=== PATIENT | male | born 1985 | race Caucasian/White ===

== ENCOUNTER 2020-11-08 09:59 | Emergency (ER) | payer OTHER, SELFPAY ==
[2020-11-08 10:10] VITALS: BP 166/96; PULSE 94; RESP 19; TEMP 37.8; O2SAT 98; BMI 38.1
--- NOTE | 2020-11-08 11:14 | PC.NURSE ---
States Hx of anxiety. reports difficulty sleeping and decreased PO intake.
[2020-11-08 11:42] VITALS: TEMP 36.8
--- NOTE | 2020-11-08 12:05 | ED_ITS ---
HPI - Anxiety General Chief Complaint: Anxiety Stated Complaint: UNCONTROLLABLE ANXIETY, INSOMNIA, DEHYDRATION Time Seen by Provider: 11/08/20 11:43 Source: patient Mode of arrival: Family Vehicle History of Present Illness HPI narrative: Patient is a 35-year-old male with history of alcohol and cocaine abuse but sober for 3 years presenting with insomnia anxiety. He states he was put on antibiotics a week ago Keflex for a right knee infection he has been taking antibiotics since the but he did skip a day. Last night he said was unable to sleep he was up all night. He had excessive thirst and drink a bunch of water. Today he had some shaking uncontrollably he is unsure why he did not have any sweats afterwards. He did have low-grade fever initially in the ER but denies any other fever. His knee overall has improved significantly. MD complaint: anxiety Related Data Home Medications Medication Instructions Recorded Confirmed Ibuprofen See Rx Instructions .ROUTE .COMPLEX 08/08/18 10/31/20 Previous Rx's Medication Instructions Recorded cephalexin 500 mg capsule 500 mg PO Q8H 10 Days #30 cap 10/31/20 Allergies Allergy/AdvReac Type Severity Reaction Status Date / Time doxycycline Allergy Intermediate HIVES Verified 10/31/20 08:39 alprazolam [ALPRAZOLAM] AdvReac Severe ADDICTION Verified 10/31/20 08:39 buspirone AdvReac Mild DIZZINESS Verified 10/31/20 08:39 Review of Systems Review of Systems ROS Unobtainable: All systems reviewed & are unremarkable except as noted in HPI and below Constitutional Constitutional: Denies chills, Reports fatigue, Denies fever(s), Denies lethargy and Denies weakness ENT Ears, Nose, Mouth, and Throat: Denies dizziness and Denies sinus pressure Comments: Denies loss of taste or smell Cardiovascular Cardiovascular: Denies chest pain, Denies irregular heart rhythm, Denies lightheadedness, Denies palpitations, Denies dyspnea, Denies dyspnea on exertion and Denies orthopnea Respiratory Respiratory: Denies cough, Denies dyspnea, Denies dyspnea on exertion and Denies wheezing Gastrointestinal Gastrointestinal: Denies abdominal pain, Denies change in bowel habits, Denies diarrhea, Denies nausea and Denies vomiting Musculoskeletal Musculoskeletal: Reports as per HPI Integumentary/Breasts Skin/Breast: Denies pruritus, Denies erythema, Denies rash and Denies wounds Neurologic Neurologic: Denies dizziness and Denies weakness Endocrine Endocrine: Reports fatigue and Denies palpitations Allergic/Immunologic Allergic/Immunologic: Denies wheezing Patient History Medical History Allergic rhinitis Anxiety Depression Surgical History No history of previous surgery Social History Smoking Status: Former smoker second hand exposure: No alcohol intake: former substance use type: does not use Smoking Status: Former smoker Substance Use Type: former substance user Exam Initial Vital Signs Initial Vital Signs: Vital Signs Temperature 100.1 F H 11/08/20 10:10 Pulse Rate 94 H 11/08/20 10:10 Respiratory Rate 19 11/08/20 10:10 Blood Pressure 166/96 H 11/08/20 10:10 Pulse Oximetry 98 11/08/20 10:10 GENERAL: Well-appearing, well-nourished and in no acute distress. HEENT: Head atraumatic,EOMI, pupils reactive, face symmetric, moist mucous membranes CARDIOVASCULAR: Regular rate and rhythm without murmurs, rubs or gallops. RESPIRATORY: Breath sounds equal bilaterally, no wheezes rales or rhonchi. ABDOMEN: Soft, nontender. Normoactive bowel sounds all 4 quadrants. No guardin g or rebound. EXTREMITIES: Normal range of motion, no clubbing or edema. Neurovascularly intact Right knee able to flex and extend completely NEUROLOGICAL: Alert and oriented x4.Normal gait and speech. Cranial nerves II through XII grossly intact. SKIN: Warm, dry, no laceration, no petechiae, no rashes or lesions. Right knee has no erythema it is covered with tattoos but I see no fluctuation no surrounding erythema Course Orders Ordered: ED Orders 11/08/20 12:35 Complete Blood Count AUTO DIFF Stat Comprehensive Metabolic Panel Stat Vital Signs Vital signs: Vital Signs - 8 hr 11/08/20 10:10 11/08/20 11:42 11/08/20 13:50 Temperature 100.1 F H 98.2 F Pulse Rate 94 H 80 Respiratory Rate 19 16 Blood Pressure 166/96 H 123/85 Pulse Oximetry 98 98 MDM - Anxiety Lab Data Attestation: I reviewed the patient's lab results. Result diagrams: 11/08/20 12:35 11/08/20 12:35 Labs: Lab Results 11/08/20 11/08/20 Range/Units 12:35 12:35 WBC 12.1 H (4.5-11.0) X10^3/uL RBC 4.89 (4.5-5.9) X10^6/uL Hgb 14.8 (13.5-17.5) g/dL Hct 43.2 (41-53) % MCV 88.2 (80-100) fL MCH 30.3 (26-34) PG MCHC 34.3 (30-36) % RDW 12.7 (11.6-14.8) % Plt Count 313 (150-400) X10^3/uL Neut % (Auto) 72.8 (50-75) % Lymph % (Auto) 16.7 L (25-40) % [place] % (Auto) 4.3 (3-14) % Eos % (Auto) 5.8 H (2-4) % Baso % (Auto) 0.4 (0-2) % Neut # (Auto) 8800 H (4221-8183) /uL Lymph # (Auto) 2000 (2211-8158) /uL [place] # (Auto) 500 (0-900) /uL Eos # (Auto) 700 H (0-450) /uL Baso # (Auto) 100 (0-100) /uL Sodium 139 (137-145) mmol/L Potassium 4.3 (3.4-5.1) mmol/L Chloride 103 (98-107) mmol/L Carbon Dioxide 31 (22-32) mmol/L BUN 14 (9-20) mg/dL Creatinine 0.72 (0.66-1.25) mg/dL Estimated GFR > 60.0 (>60) mL/min BUN/Creatinine Ratio 19.4 (6-22) Glucose 107 H (70-100) mg/dL Calcium 9.6 (8.4-10.2) mg/dL Total Bilirubin 0.4 (0.2-1.3) mg/dL AST 27 (17-59) IU/L ALT 27 (<50) IU/L Alkaline Phosphatase 75 (38-126) U/L Total Protein 7.8 (6.3-8.2) g/dL Albumin 4.6 (3.5-5.0) g/dL Globulin 3.2 (1.7-4.1) g/dL Albumin/Globulin Ratio 1.4 (1.0-2.8) Point of Care Testing Glucose POC 131 Urine Dip Bedside Urine Glucose Negative Bedside Urine Bilirubin - Negative Bedside Urine Ketone - Negative Urine Specific [place] 1.015 Bedside Urine Occult Blood - Negative Bedside Urine pH 6.0 Bedside Urine Protein - Negative Bedside Urine Urobilinogen - Negative Bedside Urine Nitrite - Negative Bedside Urine Leukocytes - Negative Esterase MDM Narrative Medical decision making narrative: Patient overall appears well. He feels like he might be having a reaction to cephalexin with the anxiety. At this time I really do not have a strong feeling this is what is happening. He overall has no rash or allergic type reaction. The cephalexin seems to be working on his infection he does have mild leukocytosis but overall the site appears to be healing. He states he is extremely sensitive to medications, however at this time I recommend he finish the antibiotic unless it is completely intolerable bu t we would need to switch it to something else. At this time I recommend taking Benadryl or Unisom to help him get some sleep. Insomnia can compound his symptoms. This seems to be more of an anxiety related issue. He overall does not appear septic. Discharge Plan Departure Patient Disposition: Home Clinical Impression: Anxiety Instructions: Anxiety Disorders Activity Restrictions/Additional Instructions: *You have been diagnosed with anxiety *What to do: Possible anxiety reaction today. Blood work is overall reassuring. Some water is good for you however too much water can be dangerous so please monitor your water intake your electrolytes today are within normal limits *Continue to take medications as directed Please finish your antibiotic *Follow up with your primary care provider in 2-3 days *Return to ER if you should have any new, worsening or concerning symptoms Prescriptions: No Action Ibuprofen See Rx Instructions .ROUTE .COMPLEX RF: 0 cephalexin 500 mg capsule 500 mg PO Q8H 10 Days Qty: 30 RF: 0 Referrals: Miscellaneous,Doctor, [Primary Care Provider] -
[2020-11-08 12:42] LABS: Add Manual Diff / Slide Review NO; Basophils Absolute Auto 100 /uL (0-100); Basophils Percent Auto 0.4 % (0-2); Eosinophils Absolute Auto 700 /uL (0-450); Eosinophils Percent Auto 5.8 % (2-4); Hematocrit 43.2 % (41-53); Hemoglobin 14.8 g/dL (13.5-17.5); Lymphocytes Absolute Auto 2000 /uL (1100-4500); Lymphocytes Percent Auto 16.7 % (25-40); Mean Corpuscular HGB Conc 34.3 % (30-36); Mean Corpuscular Hemoglobin 30.3 PG (26-34); Mean Corpuscular Volume 88.2 fL (80-100); Monocytes Absolute Auto 500 /uL (0-900); Monocytes Percent Auto 4.3 % (3-14); Neutrophils Absolute Auto 8800 /uL (1500-7000); Neutrophils Percent Auto 72.8 % (50-75); Platelet Count 313 X10^3/uL (150-400); Red Blood Cell Count 4.89 X10^6/uL (4.5-5.9); Red Cell Distribution Width 12.7 % (11.6-14.8); White Blood Cell Count 12.1 X10^3/uL (4.5-11.0)
[2020-11-08 12:54] LABS: Alanine Aminotransferase 27 IU/L (<50); Albumin 4.6 g/dL (3.5-5.0); Albumin Globulin Ratio 1.4 (1.0-2.8); Alkaline Phosphatase 75 U/L (38-126); Aspartate Aminotransferase 27 IU/L (17-59); BUN Creatinine Ratio 19.4 (6-22); Bilirubin Total 0.4 mg/dL (0.2-1.3); Blood Urea Nitrogen 14 mg/dL (9-20); Calcium 9.6 mg/dL (8.4-10.2); Carbon Dioxide 31 mmol/L (22-32); Chloride 103 mmol/L (98-107); Estimated Glomerular Filt Rate > 60.0 mL/min (>60); Globulin 3.2 g/dL (1.7-4.1); Glucose 107 mg/dL (70-100); HEMOLYSIS < 15 (0-50); Potassium 4.3 mmol/L (3.4-5.1); Sodium 139 mmol/L (137-145); Total Protein 7.8 g/dL (6.3-8.2)
[2020-11-08 13:50] VITALS: BP 123/85; PULSE 80; RESP 16; O2SAT 98
== END 2020-11-08 13:50 | disposition home or self-care (01) ==
PROVIDERS: Emergency Provider Emergency Medicine
DX: F41.9 Anxiety disorder, unspecified (principal); R50.9 Fever, unspecified; F32.9 Major depressive disorder, single episode, unspecified; G47.00 Insomnia, unspecified
CPT/HCPCS: 80053; 81003; 82962; 85025; 99282; 99283

== ENCOUNTER → 2021-03-02 07:36 | Outpatient (CLI) | payer OTHER, SELFPAY ==
[2021-03-02 08:16] LABS: Cholesterol 148 mg/dL (140-199); HDL Cholesterol 26 mg/dL (40-60); LDL Cholesterol Calculated 99 mg/dL (<100); Triglycerides 117 mg/dL (35-150)
[2021-03-02 08:20] LABS: Hemoglobin A1C% w Est Avg Glu 5.5 % (4.0-6.0)
[2021-03-02 08:48] LABS: TSH w/ Reflex to FT4 1.97 uIU/mL (0.47-4.68)
== END ==
PROVIDERS: PCP Family Medicine; Referring Provider Family Medicine; Visit Provider Family Medicine
DX: Z00.01 Encounter for general adult medical examination with abnormal findings (principal); F41.9 Anxiety disorder, unspecified
CPT/HCPCS: 36415; 80061; 83036; 84443

== ENCOUNTER 2021-07-25 10:30 | Emergency (ER) | payer OTHER, SELFPAY ==
[2021-07-25 10:46] VITALS: BP 133/91; PULSE 70; RESP 16; TEMP 36.7; O2SAT 99; BMI 35.9
[2021-07-25 11:10] LABS: Add Manual Diff / Slide Review NO; Basophils Absolute Auto 0 /uL (0-100); Basophils Percent Auto 0.5 % (0-2); Eosinophils Absolute Auto 100 /uL (0-450); Eosinophils Percent Auto 1.3 % (2-4); Hematocrit 44.7 % (41-53); Hemoglobin 15.6 g/dL (13.5-17.5); Lymphocytes Absolute Auto 1800 /uL (1100-4500); Lymphocytes Percent Auto 27.9 % (25-40); Mean Corpuscular HGB Conc 34.9 % (30-36); Mean Corpuscular Hemoglobin 30.7 PG (26-34); Mean Corpuscular Volume 88.1 fL (80-100); Monocytes Absolute Auto 600 /uL (0-900); Monocytes Percent Auto 8.5 % (3-14); Neutrophils Absolute Auto 4100 /uL (1500-7000); Neutrophils Percent Auto 61.8 % (50-75); Platelet Count 232 X10^3/uL (150-400); Red Blood Cell Count 5.07 X10^6/uL (4.5-5.9); Red Cell Distribution Width 12.5 % (11.6-14.8); White Blood Cell Count 6.6 X10^3/uL (4.5-11.0)
[2021-07-25 11:19] LABS: Alanine Aminotransferase 28 IU/L (<50); Albumin 4.7 g/dL (3.5-5.0); Albumin Globulin Ratio 1.6 (1.0-2.8); Alkaline Phosphatase 66 U/L (38-126); Aspartate Aminotransferase 28 IU/L (17-59); BUN Creatinine Ratio 22.5 (6-22); Bilirubin Total 0.7 mg/dL (0.2-1.3); Blood Urea Nitrogen 18 mg/dL (9-20); Calcium 9.6 mg/dL (8.4-10.2); Carbon Dioxide 24 mmol/L (22-32); Chloride 105 mmol/L (98-107); Creatine Kinase 167 U/L (55-170); Estimated Glomerular Filt Rate > 60.0 mL/min (>60); Globulin 2.9 g/dL (1.7-4.1); Glucose 112 mg/dL (70-100); HEMOLYSIS < 15 (0-50); Lipase 74 U/L (23-300); Magnesium 2.1 mg/dL (1.6-2.3); Sodium 139 mmol/L (137-145); Total Protein 7.6 g/dL (6.3-8.2)
[2021-07-25 11:31] LABS: Troponin I < 0.012 ng/mL (0.01-0.034)
[2021-07-25 11:35] LABS: CKMB % Relative Index 0.4 % (1.5-5.0)
[2021-07-25 12:02] LABS: COVID19 -Nasal RAPID Negative (Negative)
[2021-07-25] MEDS: hydrOXYzine Syrup 10 MG/5 ML SOLUTION PO (13:09)
--- NOTE | 2021-07-25 13:26 | PC.NURSE ---
Pt is well appearing, with quiet, withdrawn affect but readily communicative with this RN. Anxiety appears to be manageable at this time.
[2021-07-25 13:31] VITALS: BP 124/74; PULSE 69; RESP 16; O2SAT 96
--- NOTE | 2021-07-25 13:50 | ED.ANXIETY ---
HPI - Anxiety <LLUVIA Allan - Last Filed: 07/25/21 15:16> General Chief Complaint: Anxiety Stated Complaint: not sleeping /panic attacks/ weak/ chest pain Time Seen by Provider: 07/25/21 12:12 Source: patient Mode of arrival: Ambulatory History of Present Illness HPI narrative: 36-year-old male presents with complaint of anxiety and panic attacks worsening over the last 2 weeks. He has been to the ER for this previously and is currently receiving behavioral therapy 1 time per week and is not currently on any medication for his anxiety. He has history of substance abuse and reports being in recovery for last 3 years. He endorses that he has extra sensitivity to medication since sobriety and has reported negative reactions to lexapro including hallucinations, and buspirone causing dizziness. He reports having trouble sleeping for last two weeks and having episodes of panic and feelings of depression intermittently. He is trying to get an appointment with his PCP next week. No known relieving factors, and triggers are not identifiable. Denies suicidal ideation, homicidal ideation, or audiovisual hallucinations. Related Data Home Medications Medication Instructions Recorded Confirmed Ibuprofen See Rx Instructions .ROUTE .COMPLEX 08/08/18 02/24/21 Previous Rx's Medication Instructions Recorded hydroxyzine HCl 10 mg tablet See Rx Instructions .ROUTE 07/25/21 .COMPLEX PRN #30 tab Allergies Allergy/AdvReac Type Severity Reaction Status Date / Time doxycycline Allergy Intermediate HIVES Verified 03/11/21 10:31 alprazolam [ALPRAZOLAM] AdvReac Severe ADDICTION Verified 03/11/21 10:31 escitalopram AdvReac Severe panic Verified 03/11/21 10:31 attack, lock jaw, tremors buspirone AdvReac Mild DIZZINESS Verified 03/11/21 10:31 Review of Systems <LLUVIA Allan - Last Filed: 07/25/21 15:16> Review of Systems Narrative: GENERAL: Denies chills, fatigue, malaise, fever, sweats. HEENT: Denies sinus pain, ear pain, sore throat, difficulty swallowing, dizziness. RESPIRATORY: Denies dyspnea, cough, or wheezing. CARDIOVASCULAR: Denies chest pain, palpitations, or swelling. GASTROINTESTINAL: Denies nausea, vomiting, abdominal pain, diarrhea. : Denies dysuria, frequency. MUSCULOSKELETAL: denies weakness, joint pain, or bony pain SKIN: Denies rash, skin lesions, or other NEUROLOGIC: Denies weakness, headaches, or incoordination. PSYCHIATRIC: No concerning psychosocial issues including SI, HI, or ADH. Denies caffeine use, denies any substance use including nicotine. 12 point review of systems is negative except for those stated above Patient History <LLUVIA Allan - Last Filed: 07/25/21 15:16> Medical History Allergic rhinitis Anxiety Depression Encounter for general adult medical examination with abnormal findings Surgical History No history of previous surgery Social History Smoking Status: Never smoker second hand exposure: No alcohol intake: former substance use type: does not use Smoking Status: Never smoker alcohol intake frequency: 0-2 drinks per day Substance Use Type: does not use Exam <LLUVIA Allan - Last Filed: 07/25/21 15:16> Narrative Exam Narrative: GENERAL: 36 year old male patient appears stated age. Well-developed patient, in mild psychosocial distress. HEAD: Atraumatic. Normocephalic. EYES: Pupils equal round and reactive. Extraocular motions intact. No scleral icterus. No injection or drainage. ENT: Nose without drainage. Throat without erythema, airway patent. Moist mucous membranes. NECK: Trachea midline. Non tender CARDIOVASCULAR: Regular rate and rhythm without murmurs, gallops, or rubs. RESPIRATORY: Clear to auscultation. Breath sounds equal bilaterally. No wheezes, rales, or rhonchi. GASTROINTESTINAL: Abdomen soft, non-tender, nondistended. Hypoactive bowel tones EXTREMITIES: No edema or joint tenderness. BACK: Nontender without deformity. No flank tenderness. NEURO: AOx3, mood and mentation are appropriate during my exam. SKIN: No rash or erythema of visible areas Initial Vital Signs Initial Vital Signs: Vital Signs Temperature 98.1 F 07/25/21 10:46 Pulse Rate 70 07/25/21 10:46 Respiratory Rate 16 07/25/21 10:46 Blood Pressure 133/91 H 07/25/21 10:46 Pulse Oximetry 99 07/25/21 10:46 <Jaimie Wyman DO - Last Filed: 07/26/21 08:50> Initial Vital Signs Initial Vital Signs: Vital Signs Temperature 98.1 F 07/25/21 10:46 Pulse Rate 70 07/25/21 10:46 Respiratory Rate 16 07/25/21 10:46 Blood Pressure 133/91 H 07/25/21 10:46 Pulse Oximetry 99 07/25/21 10:46 Course <LLUVIA Allan - Last Filed: 07/25/21 15:16> Orders Ordered: Discontinued Medications Hydroxyzine HCl (Hydroxyzine Syrup 10 Mg/5 Ml Solution) 10 mg PO NOW ONE Stop: 07/25/21 12:43 Last Admin: 07/25/21 13:09 Dose: 10 mg Documented by: CTRRIGOBERTO Vital Signs Vital signs: Vital Signs - 8 hr 07/25/21 10:46 07/25/21 13:31 Temperature 98.1 F Pulse Rate 70 69 Respiratory Rate 16 16 Blood Pressure 133/91 H 124/74 Pulse Oximetry 99 96 <Jaimie Wyman DO - Last Filed: 07/26/21 08:50> Orders Ordered: Discontinued Medications Hydroxyzine HCl (Hydroxyzine Syrup 10 Mg/5 Ml Solution) 10 mg PO NOW ONE Stop: 07/25/21 12:43 Last Admin: 07/25/21 13:09 Dose: 10 mg Documented by: CTRRIGOBERTO Vital Signs Vital signs: Vital Signs - 8 hr 07/25/21 10:46 07/25/21 13:31 Temperature 98.1 F Pulse Rate 70 69 Respiratory Rate 16 16 Blood Pressure 133/91 H 124/74 Pulse Oximetry 99 96 MDM - Anxiety <LLUVIA Allan - Last Filed: 07/25/21 15:16> Differential Diagnosis Differential diagnosis: Likely panic disorder and acute anxiety Lab Data Result diagrams: 07/25/21 10:56 07/25/21 10:56 Labs: Lab Results 07/25/21 07/25/21 07/25/21 Range/Units 10:56 10:56 10:56 WBC 6.6 (4.5-11.0) X10^3/uL RBC 5.07 (4.5-5.9) X10^6/uL Hgb 15.6 (13.5-17.5) g/dL Hct 44.7 (41-53) % MCV 88.1 (80-100) fL MCH 30.7 (26-34) PG MCHC 34.9 (30-36) % RDW 12.5 (11.6-14.8) % Plt Count 232 (150-400) X10^3/uL Neut % (Auto) 61.8 (50-75) % Lymph % (Auto) 27.9 (25-40) % [place] % (Auto) 8.5 (3-14) % Eos % (Auto) 1.3 L (2-4) % Baso % (Auto) 0.5 (0-2) % Neut # (Auto) 4100 (1733-9259) /uL Lymph # (Auto) 1800 (9902-7200) /uL [place] # (Auto) 600 (0-900) /uL Eos # (Auto) 100 (0-450) /uL Baso # (Auto) 0 (0-100) /uL Sodium 139 (137-145) mmol/L Potassium 4.0 (3.4-5.1) mmol/L Chloride 105 (98-107) mmol/L Carbon Dioxide 24 (22-32) mmol/L BUN 18 (9-20) mg/dL Creatinine 0.80 (0.66-1.25) mg/dL Estimated GFR > 60.0 (>60) mL/min BUN/Creatinine Ratio 22.5 H (6-22) Glucose 112 H (70-100) mg/dL Calcium 9.6 (8.4-10.2) mg/dL Magnesium 2.1 (1.6-2.3) mg/dL Total Bilirubin 0.7 (0.2-1.3) mg/dL AST 28 (17-59) IU/L ALT 28 (<50) IU/L Alkaline Phosphatase 66 (38-126) U/L Total Creatine Kinase 167 (55-170) U/L CK-MB (CK-2) 0.70 (<2.37) ng/mL CK-MB (CK-2) Rel Index 0.4 L (1.5-5.0) % Troponin I < 0.012 (0.01-0.034) ng/mL Total Protein 7.6 (6.3-8.2) g/dL Albumin 4.7 (3.5-5.0) g/dL Globulin 2.9 (1.7-4.1) g/dL Albumin/Globulin Ratio 1.6 (1.0-2.8) Lipase 74 (23-300) U/L TSH 1.50 (0.47-4.68) uIU/mL SARS-CoV-2 (PCR) (Negative) 07/25/21 Range/Units 11:39 WBC (4.5-11.0) X10^3/uL RBC (4.5-5.9) X10^6/uL Hgb (13.5-17.5) g/dL Hct (41-53) % MCV (80-100) fL MCH (26-34) PG MCHC (30-36) % RDW (11.6-14.8) % Plt Count (150-400) X10^3/uL Neut % (Auto) (50-75) % Lymph % (Auto) (25-40) % [place] % (Auto) (3-14) % Eos % (Auto) (2-4) % Baso % (Auto) (0-2) % Neut # (Auto) (3106-7207) /uL Lymph # (Auto) (7516-1716) /uL [place] # (Auto) (0-900) /uL Eos # (Auto) (0-450) /uL Baso # (Auto) (0-100) /uL Sodium (137-145) mmol/L Potassium (3.4-5.1) mmol/L Chloride (98-107) mmol/L Carbon Dioxide (22-32) mmol/L BUN (9-20) mg/dL Creatinine (0.66-1.25) mg/dL Estimated GFR (>60) mL/min BUN/Creatinine Ratio (6-22) Glucose (70-100) mg/dL Calcium (8.4-10.2) mg/dL Magnesium (1.6-2.3) mg/dL Total Bilirubin (0.2-1.3) mg/dL AST (17-59) IU/L ALT (<50) IU/L Alkaline Phosphatase (38-126) U/L Total Creatine Kinase (55-170) U/L CK-MB (CK-2) (<2.37) ng/mL CK-MB (CK-2) Rel Index (1.5-5.0) % Troponin I (0.01-0.034) ng/mL Total Protein (6.3-8.2) g/dL Albumin (3.5-5.0) g/dL Globulin (1.7-4.1) g/dL Albumin/Globulin Ratio (1.0-2.8) Lipase (23-300) U/L TSH (0.47-4.68) uIU/mL SARS-CoV-2 (PCR) Negative (Negative) ECG Data Attestation: I personally reviewed and interpreted this ECG as follows: Prior ECG tracings: not available for review Interpretation: Normal sinus rhythm 71 bpm, no ST changes, no QT prolongation. Reviewed by Dr. Wyman without acute findings. [facility] Narrative Medical decision making narrative: 31-year-old male with history of substance abuse presents with repeated episodes anxiety insomnia over the last 2 weeks. He reports being a single father under some stress. He denies any suicidal ideation or homicidal ideation or ADH. Initial ddx to include but not limited to panic disorder, thyrotoxicosis, arrhythmia, or psychosis. Vitals normal, exam unremarkable. ED workup to include CBC, CMP, TSH, EKG unremarkable for acute actual abnormality. No evidence of acute cardiopulmonary or neurological abnormalities. Patient received hydroxyzine in the ED with improvement in anxiety without any side effects. Patient is appropriate and amenable to discharge home. Vital signs are stable on repeat examination is unremarkable. Patient has been informed of results. Patient has been given strict return to ER precautions for any new or worsening symptoms. Patient understands to follow up closely with outpatient providers as instructed. Patient understands plan and agrees to discharge home. All questions and concerns answered at this time. <Jaimie Wyman, DO - Last Filed: 07/26/21 08:50> Lab Data Labs: Lab Results 07/25/21 07/25/21 07/25/21 Range/Units 10:56 10:56 10:56 WBC 6.6 (4.5-11.0) X10^3/uL RBC 5.07 (4.5-5.9) X10^6/uL Hgb 15.6 (13.5-17.5) g/dL Hct 44.7 (41-53) % MCV 88.1 (80-100) fL MCH 30.7 (26-34) PG MCHC 34.9 (30-36) % RDW 12.5 (11.6-14.8) % Plt Count 232 (150-400) X10^3/uL Neut % (Auto) 61.8 (50-75) % Lymph % (Auto) 27.9 (25-40) % [place] % (Auto) 8.5 (3-14) % Eos % (Auto) 1.3 L (2-4) % Baso % (Auto) 0.5 (0-2) % Neut # (Auto) 4100 (3262-3151) /uL Lymph # (Auto) 1800 (8548-0997) /uL [place] # (Auto) 600 (0-900) /uL Eos # (Auto) 100 (0-450) /uL Baso # (Auto) 0 (0-100) /uL Sodium 139 (137-145) mmol/L Potassium 4.0 (3.4-5.1) mmol/L Chloride 105 (98-107) mmol/L Carbon Dioxide 24 (22-32) mmol/L BUN 18 (9-20) mg/dL Creatinine 0.80 (0.66-1.25) mg/dL Estimated GFR > 60.0 (>60) mL/min BUN/Creatinine Ratio 22.5 H (6-22) Glucose 112 H (70-100) mg/dL Calcium 9.6 (8.4-10.2) mg/dL Magnesium 2.1 (1.6-2.3) mg/dL Total Bilirubin 0.7 (0.2-1.3) mg/dL AST 28 (17-59) IU/L ALT 28 (<50) IU/L Alkaline Phosphatase 66 (38-126) U/L Total Creatine Kinase 167 (55-170) U/L CK-MB (CK-2) 0.70 (<2.37) ng/mL CK-MB (CK-2) Rel Index 0.4 L (1.5-5.0) % Troponin I < 0.012 (0.01-0.034) ng/mL Total Protein 7.6 (6.3-8.2) g/dL Albumin 4.7 (3.5-5.0) g/dL Globulin 2.9 (1.7-4.1) g/dL Albumin/Globulin Ratio 1.6 (1.0-2.8) Lipase 74 (23-300) U/L TSH 1.50 (0.47-4.68) uIU/mL SARS-CoV-2 (PCR) (Negative) 07/25/21 Range/Units 11:39 WBC (4.5-11.0) X10^3/uL RBC (4.5-5.9) X10^6/uL Hgb (13.5-17.5) g/dL Hct (41-53) % MCV (80-100) fL MCH (26-34) PG MCHC (30-36) % RDW (11.6-14.8) % Plt Count (150-400) X10^3/uL Neut % (Auto) (50-75) % Lymph % (Auto) (25-40) % [place] % (Auto) (3-14) % Eos % (Auto) (2-4) % Baso % (Auto) (0-2) % Neut # (Auto) (7259-5577) /uL Lymph # (Auto) (1518-8788) /uL [place] # (Auto) (0-900) /uL Eos # (Auto) (0-450) /uL Baso # (Auto) (0-100) /uL Sodium (137-145) mmol/L Potassium (3.4-5.1) mmol/L Chloride (98-107) mmol/L Carbon Dioxide (22-32) mmol/L BUN (9-20) mg/dL Creatinine (0.66-1.25) mg/dL Estimated GFR (>60) mL/min BUN/Creatinine Ratio (6-22) Glucose (70-100) mg/dL Calcium (8.4-10.2) mg/dL Magnesium (1.6-2.3) mg/dL Total Bilirubin (0.2-1.3) mg/dL AST (17-59) IU/L ALT (<50) IU/L Alkaline Phosphatase (38-126) U/L Total Creatine Kinase (55-170) U/L CK-MB (CK-2) (<2.37) ng/mL CK-MB (CK-2) Rel Index (1.5-5.0) % Troponin I (0.01-0.034) ng/mL Total Protein (6.3-8.2) g/dL Albumin (3.5-5.0) g/dL Globulin (1.7-4.1) g/dL Albumin/Globulin Ratio (1.0-2.8) Lipase (23-300) U/L TSH (0.47-4.68) uIU/mL SARS-CoV-2 (PCR) Negative (Negative) ECG Data Interpretation: Normal sinus rhythm 71 bpm, no ST changes, no QT prolongation. Reviewed by Dr. Wyman without acute findings. WAYNE: Normal sinus rhythm rate 71 appearing 166 year rest [address] changes no T-wave inversions s waves are noted and 2 3 and AVF no Q-waves- [facility] Narrative Medical decision making narrative: 36-year-old male with history of substance abuse presents with repeated episodes anxiety insomnia over the last 2 weeks. He reports being a single father under some stress. He denies any suicidal ideation or homicidal ideation or ADH. Initial ddx to include but not limited to panic disorder, thyrotoxicosis, arrhythmia, or psychosis. Vitals normal, exam unremarkable. ED workup to include CBC, CMP, TSH, EKG unremarkable for acute actual abnormality. No evidence of acute cardiopulmonary or neurological abnormalities. Patient received hydroxyzine in the ED with improvement in anxiety without any side effects. Patient is appropriate and amenable to discharge home. Vital signs are stable on repeat examination is unremarkable. Patient has been informed of results. Patient has been given strict return to ER precautions for any new or worsening symptoms. Patient understands to follow up closely with outpatient providers as instructed. Patient understands plan and agrees to discharge home. All questions and concerns answered at this time. Discharge Plan Departure Patient Disposition: Home Clinical Impression: Anxiety, Sleep disturbance Instructions: Anxiety and Panic Attacks (Alternative Therapy), DI for Anxiety -- Adult, Yoga May Help Reduce Anxiety and Stress Activity Restrictions/Additional Instructions: It was nice to meet you today. You have been diagnosed with anxiety, insomnia, and panic attacks. *What to do: *Please continue to take your regular medications as directed. [ x] New medication prescriptions sent to your pharmacy: [facility] [ ] New medication written as a paper prescription [ ] No new medications given Take hydroxyzine up to 4 times a day for anxiety and panic attacks. Consider increasing your talk therapy session frequency in times where you feel more anxiety. The book I recommended is Rewiring your Anxious Brain. It will take time and effort to retrain your brain. *Please follow up with your primary care provider in 2-3 days, call for an appointment. Let them know you were seen in the Emergency Department and that we ask that you be seen in follow up. We will electronically transmit a record of today's note if your PCP is in our system *If you do not have a primary care provider please contact the [facility] Resource line at [phone]. They will ask some questions about your medical history and help get you set up with a doctor in the community. *Return to Emergency Department if you should have any new, worsening or concerning symptoms, such as [fever greater than 101 F, shaking chills, worsening pain, persistent vomiting or other bothersome symptoms] Prescriptions: Changed hydroxyzine HCl 10 mg tablet See Rx Instructions .ROUTE .COMPLEX PRN (Reason: anxiety) Qty: 30 RF: 0 No Action Ibuprofen See Rx Instructions .ROUTE .COMPLEX RF: 0 Referrals: Amilcar Timmons MD [Primary Care Provider] - <Jaimie Wyman, - Last Filed: 07/26/21 08:50> [facility] Att[facility]: I was immediately available in the department for consultation. Documentation has been reviewed. I agree with assessment and plan.
== END 2021-07-25 13:38 | disposition home or self-care (01) ==
PROVIDERS: Emergency Medicine; Emergency Provider Nurse Practitioner Critical Care Medicine; PCP Family Medicine
DX: F41.9 Anxiety disorder, unspecified (principal); G47.9 Sleep disorder, unspecified; G47.00 Insomnia, unspecified; R07.9 Chest pain, unspecified; Z20.822 Contact with and (suspected) exposure to COVID-19
CPT/HCPCS: 36415; 80053; 82550; 82553; 83690; 83735; 84443; 84484; 85025; 87635; 93005; 99283; 99284; C9803

== ENCOUNTER 2021-12-30 08:44 | Emergency (ER) | payer OTHER, SELFPAY ==
[2021-12-30] VITALS (8 sets, daily range): BP systolic 126–168; BP diastolic 79–103; PULSE 58–90; RESP 13–18; TEMP 36.4–37.2; O2SAT 96–100; BMI 34.4
--- NOTE | 2021-12-30 09:11 | DI.RAD.S_ITS ---
PROCEDURE: XR CHEST 1V INDICATIONS: chest pain TECHNIQUE: One view of the chest was acquired. COMPARISON: None. FINDINGS: Surgical changes and devices: None. Lungs and pleura: Lungs are clear. No pleural effusions or pneumothorax. Mediastinum: Mediastinal contours appear normal. Heart size is normal. Bones and chest wall: No suspicious bony lesions. Overlying soft tissues appear unremarkable. IMPRESSION: No acute cardiopulmonary pathology. Dictated by: Torito Villar M.D. on 12/30/2021 at 9:29 Approved by: Torito Villar M.D. on 12/30/2021 at 9:29
--- NOTE | 2021-12-30 09:11 | ED_ITS ---
HPI - Chest Pain General Chief Complaint: Chest Pain Stated Complaint: Chest pain, irregular heartbeat, numbness lt arm Time Seen by Provider: 12/30/21 08:49 History of Present Illness HPI narrative: 36-year-old male former smoker with history of anxiety and former alcohol and cocaine abuse (clean for 4 years) presents with a chief complaint of episodes of left anterior chest pressure that has been largely present since Tuesday. The discomfort has some provocation with motion and deep breaths but is certainly not exertional. The patient went for a long run last night and this did not affect his discomfort whatsoever. He denies any significant history of the same. He recently was sick with upper respiratory symptoms that were consistent with COVID but did not get tested. He is not vaccinated. He denies any history of blood clot, recent travel, hemoptysis or lower extremity pain, swelling or redness. Additionally he complains of palpitations and a racing heart. He ruben es any change in diet or medications. Related Data Home Medications Medication Instructions Recorded Confirmed Ibuprofen See Rx Instructions .ROUTE .COMPLEX 08/08/18 02/24/21 Previous Rx's Medication Instructions Recorded hydroxyzine HCl 10 mg tablet See Rx Instructions .ROUTE 08/18/21 .COMPLEX PRN #30 tab trazodone 50 mg tablet 25 mg PO DAILY #30 tab 08/18/21 Allergies Allergy/AdvReac Type Severity Reaction Status Date / Time doxycycline Allergy Intermediate HIVES Verified 03/11/21 10:31 alprazolam [ALPRAZOLAM] AdvReac Severe ADDICTION Verified 03/11/21 10:31 escitalopram AdvReac Severe panic Verified 03/11/21 10:31 attack, lock jaw, tremors buspirone AdvReac Mild DIZZINESS Verified 03/11/21 10:31 Review of Systems Review of Systems Narrative: GENERAL: Denies chills, fatigue, malaise, fever, sweats. HEENT: Denies sinus pain, ear pain, sore throat, difficulty swallowing, dizziness. RESPIRATORY: Denies dyspnea, cough, wheezing, hemoptysis, sputum. CARDIOVASCULAR: See HPI GASTROINTESTINAL: Denies nausea, vomiting, abdominal pain, diarrhea, constipation, melena. : Denies dysuria, frequency, incontinence, hematuria, urinary retention. MUSCULOSKELETAL: denies weakness, joint pain, or bony pain SKIN: Denies rash, skin lesions, or other NEUROLOGIC: Denies weakness, headache, numbness, change in speech, confusion, seizures, incoordination. PSYCHIATRIC: No concerning psychosocial issues. 12 point review of systems is negative except for those stated above Patient History Medical History Allergic rhinitis Anxiety Depression Encounter for general adult medical examination with abnormal findings Surgical History No history of previous surgery Social History Smoking Status: Never smoker second hand exposure: No alcohol intake: former substance use type: does not use Smoking Status: Never smoker alcohol intake frequency: 0-2 drinks per day Substance Use Type: does not use Exam Narrative Exam Narrative: GENERAL: [36 year old patient appears stated age. Well-developed patient, in mild distress. Anxious and tearful HEAD: Atraumatic. Normocephalic. EYES: Pupils equal round and reactive. Extraocular motions intact. No scleral icterus. No injection or drainage. ENT: Nose without bleeding, purulent drainage. Throat without erythema, tonsillar hypertrophy or exudate. Airway patent. NECK: Trachea midline. Non tender CARDIOVASCULAR: Regular rate and rhythm without murmurs, gallops, or rubs. RESPIRATORY: Clear to auscultation. Breath sounds equal bilaterally. No wheezes, rales, or rhonchi. GASTROINTESTINAL: Abdomen soft, non-tender, nondistended. EXTREMITIES: No edema or joint tenderness. BACK: Nontender without deformity or crepitance. No flank tenderness. NEURO: AOx3. SKIN: No rash or erythema of visible areas Initial Vital Signs Initial Vital Signs: Vital Signs Temperature 99 F 12/30/21 08:57 Pulse Rate 78 12/30/21 08:57 Respiratory Rate 14 12/30/21 08:57 Blood Pressure 168/103 H 12/30/21 08:57 Pulse Oximetry 100 12/30/21 08:57 Scores PERC Score Age greater than or equal to 50 years: No Heart rate greater than or equal to 100 bpm: No Room Air O2 Sat less than 95%: No Unilateral leg swelling: No Recent trauma or surgery: No Hemoptysis: No Prior PE or DVT: No Hormone Use: No Total PERC Score: 0 Wells' Criteria for PE Clinical signs and symptoms of DVT: No PE is #1 Dx or equally likely: No Heart rate > 100: No Immobilization at least 3 days or surg in previous 4 weeks: No History of PE or DVT: No Hemoptysis: No Malignancy w/Treatment within 6 months or palliative: No Wells' PE Score total: 0 Course Orders Ordered: ED Orders 12/30/21 09:09 COVID19 -Nasal swab/Pre-Proc Stat CRP [C-Reactive Protein Quant] Stat Complete Blood Count AUTO DIFF Stat Comprehensive Metabolic Panel Stat ESR [Erythrocyte Sedimentation Rate] Stat Lipase Stat Troponin & CK Cardiac Panel Stat 12/30/21 09:11 XR chest 1V Stat Sodium Chloride (Normal Saline 0.9%) 1,000 mls @ 150 mls/hr IV CONT STAN Last Infusion: 12/30/21 10:21 Dose: 0 mls/hr Documented by: Admin: 12/30/21 10:17 Dose: 150 mls/hr Documented by: CHINTAN Discontinued Medications Aspirin (Aspirin 81 Mg Chew Tab) 324 mg PO NOW ONE Stop: 12/30/21 09:11 Last Admin: 12/30/21 09:45 Dose: 324 mg Documented by: CHINTAN Vital Signs Vital signs: Vital Signs - 8 hr 12/30/21 08:57 12/30/21 08:59 12/30/21 09:00 Temperature 99 F Pulse Rate 78 73 90 Respiratory Rate 14 16 15 Blood Pressure 168/103 H Pulse Oximetry 100 100 100 12/30/21 09:20 12/30/21 09:27 12/30/21 09:30 Temperature 99 F 98.3 F Pulse Rate 90 68 68 Respiratory Rate 18 18 15 Blood Pressure 168/103 H 168/103 H Pulse Oximetry 100 99 97 12/30/21 10:00 12/30/21 10:20 Temperature 97.6 F Pulse Rate 59 L 58 L Respiratory Rate 13 15 Blood Pressure 126/79 Pulse Oximetry 96 98 MDM - Chest Pain Lab Data Result diagrams: 12/30/21 09:09 12/30/21 09:09 Labs: Lab Results 12/30/21 12/30/21 12/30/21 Range/Units 09:09 09:09 09:09 WBC 4.9 (4.5-11.0) X10^3/uL RBC 5.14 (4.5-5.9) X10^6/uL Hgb 15.6 (13.5-17.5) g/dL Hct 44.1 (41-53) % MCV 85.7 (80-100) fL MCH 30.4 (26-34) PG MCHC 35.4 (30-36) % RDW 12.6 (11.6-14.8) % Plt Count 236 (150-400) X10^3/uL Neut % (Auto) 48.9 L (50-75) % Lymph % (Auto) 41.5 H (25-40) % Faulk % (Auto) 7.4 (3-14) % Eos % (Auto) 1.6 L (2-4) % Baso % (Auto) 0.6 (0-2) % Neut # (Auto) 2400 (8316-1043) /uL Lymph # (Auto) 2000 (1056-8182) /uL Faulk # (Auto) 400 (0-900) /uL Eos # (Auto) 100 (0-450) /uL Baso # (Auto) 0 (0-100) /uL ESR 6 (0-15) MM/HR Sodium (137-145) mmol/L Potassium (3.4-5.1) mmol/L Chloride (98-107) mmol/L Carbon Dioxide (22-32) mmol/L BUN (9-20) mg/dL Creatinine (0.66-1.25) mg/dL Estimated GFR (>60) mL/min BUN/Creatinine Ratio (6-22) Glucose (70-100) mg/dL Calcium (8.4-10.2) mg/dL Total Bilirubin (0.2-1.3) mg/dL AST (17-59) IU/L ALT (<50) IU/L Alkaline Phosphatase (38-126) U/L Total Creatine Kinase (55-170) U/L CK-MB (CK-2) CK-MB (CK-2) Rel Index Troponin I (0.01-0.034) ng/mL C-Reactive Protein < 0.5 (<1.0) mg/dL Total Protein (6.3-8.2) g/dL Albumin (3.5-5.0) g/dL Globulin (1.7-4.1) g/dL Albumin/Globulin Ratio (1.0-2.8) Lipase (23-300) U/L 12/30/21 Range/Units 09:09 WBC (4.5-11.0) X10^3/uL RBC (4.5-5.9) X10^6/uL Hgb (13.5-17.5) g/dL Hct (41-53) % MCV (80-100) fL MCH (26-34) PG MCHC (30-36) % RDW (11.6-14.8) % Plt Count (150-400) X10^3/uL Neut % (Auto) (50-75) % Lymph % (Auto) (25-40) % Faulk % (Auto) (3-14) % Eos % (Auto) (2-4) % Baso % (Auto) (0-2) % Neut # (Auto) (2993-5141) /uL Lymph # (Auto) (0040-9088) /uL Faulk # (Auto) (0-900) /uL Eos # (Auto) (0-450) /uL Baso # (Auto) (0-100) /uL ESR (0-15) MM/HR Sodium 141 (137-145) mmol/L Potassium 3.8 (3.4-5.1) mmol/L Chloride 106 (98-107) mmol/L Carbon Dioxide 27 (22-32) mmol/L BUN 14 (9-20) mg/dL Creatinine 0.88 (0.66-1.25) mg/dL Estimated GFR > 60.0 (>60) mL/min BUN/Creatinine Ratio 15.9 (6-22) Glucose 113 H (70-100) mg/dL Calcium 9.9 (8.4-10.2) mg/dL Total Bilirubin 1.0 (0.2-1.3) mg/dL AST 36 (17-59) IU/L ALT 45 (<50) IU/L Alkaline Phosphatase 63 (38-126) U/L Total Creatine Kinase 97 (55-170) U/L CK-MB (CK-2) TNP CK-MB (CK-2) Rel Index TNP Troponin I < 0.012 (0.01-0.034) ng/mL C-Reactive Protein (<1.0) mg/dL Total Protein 8.0 (6.3-8.2) g/dL Albumin 4.7 (3.5-5.0) g/dL Globulin 3.3 (1.7-4.1) g/dL Albumin/Globulin Ratio 1.4 (1.0-2.8) Lipase 75 (23-300) U/L Imaging Data Chest x-ray: Radiologist's Impression: Roberto Chi??36??M??1985 ? Allergy/Adv: doxycycline, alprazolam, escitalopram, buspirone (More??) Close Chest X-Ray (Signed) Torito Villar - 12/30/21 Launch?[address] [address] XRay Report Signed Patient: Roberto Chi MR#: [id number] : 1985 Acct:[id number] Age/Sex: 36 / M Date of Service: 12/30/21 Loc: ED Accession Number: [id number] ?? Procedure: XR chest 1V Ordering Provider: Amari Landeros D.O. PROCEDURE:? XR CHEST 1V ? INDICATIONS:? chest pain ? TECHNIQUE:? One view of the chest was acquired.? ? COMPARISON:? None. ? FINDINGS:? ? Surgical changes and devices:? None.? ? Lungs and pleura:? Lungs are clear.? No pleural effusions or pneumothorax.? ? Mediastinum:? Mediastinal contours appear normal.? Heart size is normal.? ? Bones and chest wall:? No suspicious bony lesions.? Overlying soft tissues appear unremarkable.? ? IMPRESSION:? No acute cardiopulmonary pathology. ? ? Dictated by: Torito Villar M.D. on 12/30/2021 at 9:29 ? ? Approved by: Torito Villar M.D. on 12/30/2021 at 9:29 ? ECG Data Interpretation: EKG is normal sinus rhythm rate [87 ] and free of any signs of ischemia or ectopy. No ST segmental elevation or depression. No T wave inversions MDM Narrative Medical decision making narrative: Multiple causes of chest pain considered including NJ, PE, pneumothorax, pneumonia, aortic dissection, and pleurisy. Patient reports no radiation, no diaphoresis, no provocation with exertion, and no vomiting Patient's symptoms improved over duration of stay with above-stated therapies. Pericarditis considered, thought unlikely given lack of elevated inflammatory markers. Pulmonary embolism considered but thought unlikely given wells and PERC scores which suggest against the need for D-dimer, let alone advanced imaging. Findings and discharge diagnosis discussed with patient/family followed by verbalization of understanding Return precautions discussed with patient/family whom verbalize understanding. Discharge Plan Departure Patient Disposition: Home Clinical Impression: Atypical chest pain, Premature ventricular contraction Instructions: DI for Atypical Chest Pain Activity Restrictions/Additional Instructions: *You have been diagnosed with [atypical chest pain and PVCs. Your history, physical exam, labs and EKG are very reassuring. There is no evidence of heart attack, blood clot, pericarditis or other specific diagnosis that we require an immediate intervention *What to do: *Please continue to take your regular medications as directed. [ ] New medication prescriptions sent to your pharmacy: [ ] [ ] New medication written as a paper prescription [ ] No new medications given *Please follow up with your primary care provider in 2-3 days, call for an appointment. Let them know you were seen in the Emergency Department and that we ask that you be seen in follow up. We will electronically transmit a record of today's note if your PCP is in our system *If you do not have a primary care provider please contact the [facility] Resource line at [phone]. They will ask some questions about your medical history and help get you set up with a doctor in the community. *Return to Emergency Department if you should have any new, worsening or concerning symptoms, such as [fever greater than 101 F, shaking chills, worsening pain, persistent vomiting or other bothersome symptoms] Prescriptions: No Action Ibuprofen See Rx Instructions .ROUTE .COMPLEX 0RF Label Comments: 800 mg PO PRN Rx Instructions: 800 mg PO PRN trazodone 50 mg tablet 25 mg PO DAILY Qty: 30 2RF hydroxyzine HCl 10 mg tablet See Rx Instructions .ROUTE .COMPLEX PRN (Reason: anxiety) Qty: 30 1RF Rx Instructions: Take 0.5-2 tabs as needed for anxiety and panic attack. May use up to 25mg as needed. It may make you sleepy, do not drive after taking medication. Referrals: Amilcar Timmons MD [Primary Care Provider] -
[2021-12-30 09:22] LABS: Add Manual Diff / Slide Review NO; Basophils Absolute Auto 0 /uL (0-100); Basophils Percent Auto 0.6 % (0-2); Eosinophils Absolute Auto 100 /uL (0-450); Eosinophils Percent Auto 1.6 % (2-4); Hematocrit 44.1 % (41-53); Hemoglobin 15.6 g/dL (13.5-17.5); Lymphocytes Absolute Auto 2000 /uL (1100-4500); Lymphocytes Percent Auto 41.5 % (25-40); Mean Corpuscular HGB Conc 35.4 % (30-36); Mean Corpuscular Hemoglobin 30.4 PG (26-34); Mean Corpuscular Volume 85.7 fL (80-100); Monocytes Absolute Auto 400 /uL (0-900); Monocytes Percent Auto 7.4 % (3-14); Neutrophils Absolute Auto 2400 /uL (1500-7000); Neutrophils Percent Auto 48.9 % (50-75); Platelet Count 236 X10^3/uL (150-400); Red Blood Cell Count 5.14 X10^6/uL (4.5-5.9); Red Cell Distribution Width 12.6 % (11.6-14.8); White Blood Cell Count 4.9 X10^3/uL (4.5-11.0)
[2021-12-30 09:34] LABS: Alanine Aminotransferase 45 IU/L (<50); Albumin 4.7 g/dL (3.5-5.0); Albumin Globulin Ratio 1.4 (1.0-2.8); Alkaline Phosphatase 63 U/L (38-126); Aspartate Aminotransferase 36 IU/L (17-59); BUN Creatinine Ratio 15.9 (6-22); Blood Urea Nitrogen 14 mg/dL (9-20); Calcium 9.9 mg/dL (8.4-10.2); Carbon Dioxide 27 mmol/L (22-32); Chloride 106 mmol/L (98-107); Creatine Kinase 97 U/L (55-170); Estimated Glomerular Filt Rate > 60.0 mL/min (>60); Globulin 3.3 g/dL (1.7-4.1); Glucose 113 mg/dL (70-100); HEMOLYSIS 18 (0-50); Lipase 75 U/L (23-300); Potassium 3.8 mmol/L (3.4-5.1); Sodium 141 mmol/L (137-145)
[2021-12-30 09:38] LABS: C-Reactive Protein Quant < 0.5 mg/dL (<1.0)
[2021-12-30 09:40] LABS: Erythrocyte Sedimentation Rate 6 MM/HR (0-15)
[2021-12-30 09:44] LABS: Troponin I < 0.012 ng/mL (0.01-0.034)
[2021-12-30] MEDS: ASPIRIN 81 MG CHEW TAB 324 MG PO (09:45)
[2021-12-30] MEDS: SODIUM CHLORIDE 0.9% 1,000 ML 150 ML IV (10:17)
[2021-12-30 10:37] LABS: COVID19 -Nasal RAPID POSITIVE (Negative)
== END 2021-12-30 10:25 | disposition home or self-care (01) ==
PROVIDERS: Emergency Provider Emergency Medicine; PCP Family Medicine
DX: R07.89 Other chest pain (principal); I49.3 Ventricular premature depolarization; Z20.822 Contact with and (suspected) exposure to COVID-19
CPT/HCPCS: 36415; 71045; 80053; 82550; 83690; 84484; 85025; 85651; 86140; 87635; 93005; 93010; 99284; C9803

== ENCOUNTER 2022-01-07 07:02 | Emergency (ER) | payer OTHER, SELFPAY ==
[2022-01-07 07:07] VITALS: BP 132/86; PULSE 79; RESP 18; TEMP 36.6; O2SAT 96; BMI 34.4
--- NOTE | 2022-01-07 07:38 | ED.ANXIETY ---
HPI - Anxiety General Chief Complaint: Anxiety Stated Complaint: shaking, heart racing, reaction to meds, Time Seen by Provider: 01/07/22 07:38 Source: patient Mode of arrival: Ambulatory History of Present Illness HPI narrative: The patient has been seen here previously with atypical chest pain. He was positive for COVID but 3 weeks ago. Initial symptoms of fatigue have passed. He is not suffering headaches or sore throat. He is not having fever chills. He denies dyspnea. Prior cardiac evaluation was negative. His chest x-ray was normal. He was seen by local provider, started on ivermectin and zinc yesterday. He woke this morning with chest pain extending to his left arm, complain of edema in his left arm. He has no neck or back pain. The symptoms have resolved. He has a history of anxiety. He has previously been on Lexapro and hydroxyzine. These medications have not been beneficial. He had a panic attack with these events this morning. He still displays anxiety, but not to the level of a panic attack. He has no underlying cardiopulmonary disease. He does not demonstrate cough while here in the ER. Related Data Home Medications Medication Instructions Recorded Confirmed Ibuprofen See Rx Instructions .ROUTE .COMPLEX 08/08/18 02/24/21 Previous Rx's Medication Instructions Recorded hydroxyzine HCl 10 mg tablet See Rx Instructions .ROUTE 08/18/21 .COMPLEX PRN #30 tab trazodone 50 mg tablet 25 mg PO DAILY #30 tab 08/18/21 ondansetron 4 mg disintegrating 4 mg PO Q8H PRN #30 tab 01/01/22 tablet Allergies Allergy/AdvReac Type Severity Reaction Status Date / Time doxycycline Allergy Intermediate HIVES Verified 03/11/21 10:31 alprazolam [ALPRAZOLAM] AdvReac Severe ADDICTION Verified 03/11/21 10:31 escitalopram AdvReac Severe panic Verified 03/11/21 10:31 attack, lock jaw, tremors buspirone AdvReac Mild DIZZINESS Verified 03/11/21 10:31 Review of Systems Constitutional Constitutional: Reports as per HPI, Denies body ache(s), Denies chills, Denies fatigue, Denies fever(s) and Denies headache(s) Eyes Eyes: Denies change in vision ENT Ears, Nose, Mouth, and Throat: Denies vertigo, Denies dizziness, Denies headache(s) and Denies sore throat Comments: No change in taste or smell. Cardiovascular Cardiovascular: Reports as per HPI, Reports chest pain and Denies dyspnea Respiratory Respiratory: Denies chest congestion, Denies cough and Denies dyspnea Gastrointestinal Gastrointestinal: Denies abdominal pain, Denies constipation and Denies vomiting Musculoskeletal Musculoskeletal: Denies back pain, Denies myalgias and Denies numbness Integumentary/Breasts Skin/Breast: Denies lesions and Denies rash Neurologic Neurologic: Denies abnormal movements, Denies confusion, Denies vertigo, Denies dizziness, Denies headache(s) and Denies numbness Psychiatric Psychiatric: Denies confusion Endocrine Endocrine: Denies fatigue Hematologic/Lymphatic On Anticoagulants: No Patient History Medical History Allergic rhinitis Anxiety Depression Encounter for general adult medical examination with abnormal findings Surgical History No history of previous surgery Social History Smoking Status: Never smoker second hand exposure: No alcohol intake: former substance use type: does not use Smoking Status: Never smoker alcohol intake frequency: 0-2 drinks per day Substance Use Type: does not use Exam Initial Vital Signs Initial Vital Signs: Vital Signs Temperature 98 F 01/07/22 07:07 Pulse Rate 79 01/07/22 07:07 Respiratory Rate 18 01/07/22 07:07 Blood Pressure 132/86 01/07/22 07:07 Pulse Oximetry 96 01/07/22 07:07 Const General: cooperative, healthy appearing, comfortable and anxious [facility] Head: normocephalic and atraumatic Throat: posterior oropharynx normal Eyes General: appearance normal, both eyes and all related structures Neck Neck: No lymphadenopathy and No JVD Chest Chest: normal inspection of the chest Resp Auscultation: clear to auscultation bilaterally Cardio Rate: regular rate Rhythm: regular rhythm Heart Sounds: S1 normal, S2 normal, no click, no murmurs and no rubs GI Inspection: normal to inspection Back/Spine/Pelvis Back: No CVA tenderness Skin General: no rashes or lesions noted Neuro General: patient alert, patient awake and no focal motor deficits Extrem General: normal to inspection, capillary refill normal, no pedal edema and no calf tenderness Psych Speech and Movement: speech and movement normal Mood: anxious mood Attitude: cooperative Judgment: judgment good Other: His speech is a bit forced, he appears anxious. He is pleasant and cooperative with the evaluation. Course Course Course Narrative: His prior evaluation including labs, EKG and chest x-ray reviewed. Troponin and a D-dimer remain normal. He is asymptomatic. There is no suggestion of cardiopulmonary disease. Orders Ordered: ED Orders 01/07/22 07:56 CXR [XR chest 1V] Stat EKG-12 Lead Stat 01/07/22 09:31 D Dimer Stat Troponin & CK Cardiac Panel Stat Vital Signs Vital signs: Vital Signs - 8 hr 01/07/22 07:07 01/07/22 10:20 Temperature 98 F Pulse Rate 79 67 Respiratory Rate 18 16 Blood Pressure 132/86 120/86 Pulse Oximetry 96 97 MDM - Anxiety Lab Data Labs: Lab Results 01/07/22 01/07/22 Range/Units 09:31 09:31 D-Dimer < 200 (<230) ng/mL Total Creatine Kinase 79 (55-170) U/L CK-MB (CK-2) TNP CK-MB (CK-2) Rel Index TNP Troponin I < 0.012 (0.01-0.034) ng/mL Imaging Data Chest x-ray: Radiologist's Impression: No acute cardiopulmonary process. ECG Data Attestation: I personally reviewed and interpreted this ECG as follows: (Sinus bradycardia rate 59 beats per minute. Normal intervals. No ectopy. No acute ST T wave changes.) Discharge Plan Departure Patient Disposition: Home Clinical Impression: Atypical chest pain, Anxiety Instructions: DI for Atypical Chest Pain Activity Restrictions/Additional Instructions: Your heart and lungs are functioning normally. There is no suggestion of COVID-19 on the x-ray. I would recommend stopping the ivermectin. I Would recommend vitamin-D 5000 units daily and zinc supplements. Eat, hydrate exercise regularly to protect her health. Follow-up with your doctor as planned. Discuss a possible stress test if you want further evaluation of your heart. Return here as necessary. Prescriptions: No Action Ibuprofen See Rx Instructions .ROUTE .COMPLEX 0RF Label Comments: 800 mg PO PRN Rx Instructions: 800 mg PO PRN ondansetron 4 mg tablet,disintegrating 4 mg PO Q8H PRN (Reason: nausea and vomiting) Qty: 30 0RF trazodone 50 mg tablet 25 mg PO DAILY Qty: 30 2RF hydroxyzine HCl 10 mg tablet See Rx Instructions .ROUTE .COMPLEX PRN (Reason: anxiety) Qty: 30 1RF Rx Instructions: Take 0.5-2 tabs as needed for anxiety and panic attack. May use up to 25mg as needed. It may make you sleepy, do not drive after taking medication. Referrals: Amilcar Timmons MD [Primary Care Provider] -
--- NOTE | 2022-01-07 07:56 | DI.RAD.S_ITS ---
PROCEDURE: XR CHEST 1V INDICATIONS: Chest pain. Recent Covid. TECHNIQUE: One view of the chest was acquired. COMPARISON: [facility], CR, XR CHEST 1V, 12/30/2021, 9:16. FINDINGS: Surgical changes and devices: None. Lungs and pleura: Lungs are clear. No pleural effusions or pneumothorax. Mediastinum: Mediastinal contours appear normal. Heart size is normal. Bones and chest wall: No suspicious bony lesions. Overlying soft tissues appear unremarkable. IMPRESSION: No acute cardiopulmonary disease. Dictated by: Kira Juárez M.D. on 01/07/2022 at 8:25 Approved by: Kira Juárez M.D. on 01/07/2022 at 8:25
[2022-01-07 09:43] LABS: Creatine Kinase 79 U/L (55-170)
[2022-01-07 09:45] LABS: D Dimer < 200 ng/mL (<230)
[2022-01-07 09:56] LABS: Troponin I < 0.012 ng/mL (0.01-0.034)
[2022-01-07 10:20] VITALS: BP 120/86; PULSE 67; RESP 16; O2SAT 97
== END 2022-01-07 10:28 | disposition home or self-care (01) ==
PROVIDERS: Emergency Provider Emergency Medicine; PCP Family Medicine
DX: R07.89 Other chest pain (principal); F41.9 Anxiety disorder, unspecified
CPT/HCPCS: 36415; 71045; 82550; 84484; 85379; 93005; 93010; 99283; 99284

== ENCOUNTER 2022-01-15 19:40 | Emergency (ER) | payer OTHER, SELFPAY ==
[2022-01-15 20:08] VITALS: BP 144/89; PULSE 88; RESP 20; TEMP 36.9; O2SAT 99; BMI 34.4
--- NOTE | 2022-01-15 20:15 | ED.ANXIETY ---
HPI - Anxiety General Chief Complaint: Anxiety Stated Complaint: covid symptoms, panic attacks, no sleep in 2 days Time Seen by Provider: 01/15/22 19:48 History of Present Illness HPI narrative: 36-year-old male former smoker with history of anxiety and former alcohol and cocaine abuse (clean for 4 years) presents with a chief complaint of episodes?of extremity pain nightly for the past few nights and a lack of sleep. He has been seen multiple times in the aftermath of positive COVID relatively recently with extensive but largely negative workups. He denies any ongoing dizziness or lightheadedness nor any chest pain or shortness of breath. He has no nausea or vomiting. He states that he generally feels unwell and biggest concern is weight describes as twitching and pain that occurs in his extremities when he starts falling asleep. He states that he does not experience this during the day and is not currently experiencing the symptoms. He has had no fever or chills. He denies any GI complaints. He has no urinary symptoms such as dysuria, frequency or urgency. He recently saw his primary care provider who started him on a short course of a benzodiazepine he has only taken a dose or 2 and states that does not help him whatsoever Related Data Home Medications Medication Instructions Recorded Confirmed Ibuprofen See Rx Instructions .ROUTE .COMPLEX 08/08/18 01/08/22 Previous Rx's Medication Instructions Recorded hydroxyzine HCl 10 mg tablet See Rx Instructions .ROUTE 08/18/21 .COMPLEX PRN #30 tab clonazepam 1 mg tablet See Rx Instructions PO BEDTIME PRN 01/08/22 #30 tab omeprazole 40 mg capsule,delayed 40 mg PO DAILY #90 cap 01/08/22 release Allergies Allergy/AdvReac Type Severity Reaction Status Date / Time doxycycline Allergy Intermediate HIVES Verified 03/11/21 10:31 alprazolam [ALPRAZOLAM] AdvReac Severe ADDICTION Verified 03/11/21 10:31 escitalopram AdvReac Severe panic Verified 03/11/21 10:31 attack, lock jaw, tremors buspirone AdvReac Mild DIZZINESS Verified 03/11/21 10:31 Review of Systems Review of Systems Narrative: GENERAL: Denies chills, fatigue, malaise, fever, sweats. HEENT: Denies sinus pain, ear pain, sore throat, difficulty swallowing, dizziness. RESPIRATORY: Denies dyspnea, cough, wheezing, hemoptysis, sputum. CARDIOVASCULAR: Denies chest pain, palpitations, orthopnea, edema, GASTROINTESTINAL: Denies nausea, vomiting, abdominal pain, diarrhea, constipation, melena. : Denies dysuria, frequency, incontinence, hematuria, urinary retention. MUSCULOSKELETAL:see HP SKIN: Denies rash, skin lesions, or other NEUROLOGIC: Denies weakness, headache, numbness, change in speech, confusion, seizures, incoordination. PSYCHIATRIC: No concerning psychosocial issues. 12 point review of systems is negative except for those stated above Patient History Medical History Allergic rhinitis Anxiety Depression Encounter for general adult medical examination with abnormal findings Surgical History No history of previous surgery Social History Smoking Status: Never smoker second hand exposure: No alcohol intake: former substance use type: does not use Smoking Status: Never smoker alcohol intake frequency: 0-2 drinks per day Substance Use Type: does not use Exam Narrative Exam Narrative: GENERAL: [36] year old patient appears stated age. Well-developed patient, in mild distress. Visibly anxious and distressed HEAD: Atraumatic. Normocephalic. EYES: Pupils equal round and reactive. Extraocular motions intact. No scleral icterus. No injection or drainage. ENT: Nose without bleeding, purulent drainage. Throat without erythema, tonsillar hypertrophy or exudate. Airway patent. NECK: Trachea midline. Non tender CARDIOVASCULAR: Regular rate and rhythm without murmurs, gallops, or rubs. RESPIRATORY: Clear to auscultation. Breath sounds equal bilaterally. No wheezes, rales, or rhonchi. GASTROINTESTINAL: Abdomen soft, non-tender, nondistended. EXTREMITIES: No edema or joint tenderness. BACK: Nontender without deformity or crepitance. No flank tenderness. NEURO: AOx3. SKIN: No rash or erythema of visible areas Initial Vital Signs Initial Vital Signs: Vital Signs Temperature 98.4 F 01/15/22 20:08 Pulse Rate 88 01/15/22 20:08 Respiratory Rate 20 01/15/22 20:08 Blood Pressure 144/89 H 01/15/22 20:08 Pulse Oximetry 99 01/15/22 20:08 Course Orders Ordered: ED Orders 01/15/22 22:20 CBC Auto Diff [Complete Blood Count AUTO DIFF] Stat CMP [Comprehensive Metabolic Panel] Stat TSH w/ Reflex to FT4 Stat Vital Signs Vital signs: Vital Signs - 8 hr 01/15/22 20:08 01/15/22 21:09 01/15/22 21:30 Temperature 98.4 F Pulse Rate 88 56 L 59 L Respiratory Rate 20 Blood Pressure 144/89 H Pulse Oximetry 99 96 98 01/15/22 22:00 01/15/22 23:30 01/15/22 23:31 Temperature Pulse Rate 60 80 70 Respiratory Rate Blood Pressure 124/74 Pulse Oximetry 98 99 96 MDM - Anxiety Lab Data Result diagrams: 01/15/22 22:20 01/15/22 22:20 Labs: Lab Results 01/15/22 01/15/22 01/15/22 Range/Units 22:20 22:20 22:20 WBC 8.2 (4.5-11.0) X10^3/uL RBC 4.69 (4.5-5.9) X10^6/uL Hgb 14.1 (13.5-17.5) g/dL Hct 41.4 (41-53) % MCV 88.3 (80-100) fL MCH 30.0 (26-34) PG MCHC 34.0 (30-36) % RDW 12.8 (11.6-14.8) % Plt Count 195 (150-400) X10^3/uL Neut % (Auto) 56.6 (50-75) % Lymph % (Auto) 32.0 (25-40) % Mcdonough % (Auto) 8.5 (3-14) % Eos % (Auto) 2.2 (2-4) % Baso % (Auto) 0.7 (0-2) % Neut # (Auto) 4600 (0357-3152) /uL Lymph # (Auto) 2600 (9346-7843) /uL Mcdonough # (Auto) 700 (0-900) /uL Eos # (Auto) 200 (0-450) /uL Baso # (Auto) 100 (0-100) /uL Sodium 138 (137-145) mmol/L Potassium 4.1 (3.4-5.1) mmol/L Chloride 106 (98-107) mmol/L Carbon Dioxide 30 (22-32) mmol/L BUN 14 (9-20) mg/dL Creatinine 0.89 (0.66-1.25) mg/dL Estimated GFR > 60.0 (>60) mL/min BUN/Creatinine Ratio 15.7 (6-22) Glucose 114 H (70-100) mg/dL Calcium 9.3 (8.4-10.2) mg/dL Total Bilirubin 0.5 (0.2-1.3) mg/dL AST 23 (17-59) IU/L ALT 26 (<50) IU/L Alkaline Phosphatase 54 (38-126) U/L Total Protein 7.1 (6.3-8.2) g/dL Albumin 4.2 (3.5-5.0) g/dL Globulin 2.9 (1.7-4.1) g/dL Albumin/Globulin Ratio 1.4 (1.0-2.8) TSH 1.95 (0.47-4.68) uIU/mL MDM Narrative Medical decision making narrative: Patient with reassuring history and physical. He has been seen on multiple occasions with concerning symptoms but thus far negative workups. His symptoms seem to of largely escalated in the aftermath of COVID, perhaps suggesting an element of long COVID syndrome not classic symptoms. There are no obvious causes or targets for treatment based on his history and physical today. I encouraged close follow-up, return precautions and ongoing discussions with his primary care team Discharge Plan Departure Patient Disposition: Home Clinical Impression: Nocturnal pain Instructions: DI for Leg Pain Activity Restrictions/Additional Instructions: *You have been diagnosed with [nocturnal extremity pain. Thankfully your history, physical exam and labs are very reassuring] *What to do: *Please continue to take your regular medications as directed. [ ] New medication prescriptions sent to your pharmacy: [ ] [ ] New medication written as a paper prescription [ x] No new medications given *Please follow up with your primary care provider in 2-3 days, call for an appointment. Let them know you were seen in the Emergency Department and that we ask that you be seen in follow up. We will electronically transmit a record of today's note if your PCP is in our system *If you do not have a primary care provider please contact the [facility] Resource line at [phone]. They will ask some questions about your medical history and help get you set up with a doctor in the community. *Return to Emergency Department if you should have any new, worsening or concerning symptoms, such as [fever greater than 101 F, shaking chills, worsening pain, persistent vomiting or other bothersome symptoms] Prescriptions: No Action Ibuprofen See Rx Instructions .ROUTE .COMPLEX 0RF Label Comments: 800 mg PO PRN Rx Instructions: 800 mg PO PRN hydroxyzine HCl 10 mg tablet See Rx Instructions .ROUTE .COMPLEX PRN (Reason: anxiety) Qty: 30 1RF Rx Instructions: Take 0.5-2 tabs as needed for anxiety and panic attack. May use up to 25mg as needed. It may make you sleepy, do not drive after taking medication. clonazepam 1 mg tablet See Rx Instructions PO BEDTIME PRN (Reason: insomnia or anxiety) Qty: 30 0RF Rx Instructions: t 1/2 tab to 1 tab 30 minutes before bedtime as needed PO bedtime PRN for panic or insomnia omeprazole 40 mg capsule,delayed release(DR/EC) 40 mg PO DAILY Qty: 90 3RF Referrals: Amilcar Timmons MD [Primary Care Provider] -
[2022-01-15 21:09] VITALS: PULSE 56; O2SAT 96
[2022-01-15 21:30] VITALS: PULSE 59; O2SAT 98
--- NOTE | 2022-01-15 21:45 | PC.NURSE ---
Pt reports increase in panic attacks since having covid a few weeks ago. states when he lays down to sleep at night states skin and muscles start tensing up and keeps him awake. He states he is a single dad of a 4 yr old and hes scared something is going to happen. reports not sleeping for the past 2 nights.
[2022-01-15 22:00] VITALS: PULSE 60; O2SAT 98
[2022-01-15 22:32] LABS: Add Manual Diff / Slide Review NO; Basophils Absolute Auto 100 /uL (0-100); Basophils Percent Auto 0.7 % (0-2); Eosinophils Absolute Auto 200 /uL (0-450); Eosinophils Percent Auto 2.2 % (2-4); Hematocrit 41.4 % (41-53); Hemoglobin 14.1 g/dL (13.5-17.5); Lymphocytes Absolute Auto 2600 /uL (1100-4500); Mean Corpuscular Volume 88.3 fL (80-100); Monocytes Absolute Auto 700 /uL (0-900); Monocytes Percent Auto 8.5 % (3-14); Neutrophils Absolute Auto 4600 /uL (1500-7000); Neutrophils Percent Auto 56.6 % (50-75); Platelet Count 195 X10^3/uL (150-400); Red Blood Cell Count 4.69 X10^6/uL (4.5-5.9); Red Cell Distribution Width 12.8 % (11.6-14.8); White Blood Cell Count 8.2 X10^3/uL (4.5-11.0)
[2022-01-15 22:38] LABS: Alanine Aminotransferase 26 IU/L (<50); Albumin 4.2 g/dL (3.5-5.0); Albumin Globulin Ratio 1.4 (1.0-2.8); Alkaline Phosphatase 54 U/L (38-126); Aspartate Aminotransferase 23 IU/L (17-59); BUN Creatinine Ratio 15.7 (6-22); Bilirubin Total 0.5 mg/dL (0.2-1.3); Blood Urea Nitrogen 14 mg/dL (9-20); Calcium 9.3 mg/dL (8.4-10.2); Carbon Dioxide 30 mmol/L (22-32); Chloride 106 mmol/L (98-107); Estimated Glomerular Filt Rate > 60.0 mL/min (>60); Globulin 2.9 g/dL (1.7-4.1); Glucose 114 mg/dL (70-100); HEMOLYSIS 25 (0-50); Potassium 4.1 mmol/L (3.4-5.1); Sodium 138 mmol/L (137-145); Total Protein 7.1 g/dL (6.3-8.2)
[2022-01-15 23:28] LABS: TSH w/ Reflex to FT4 1.95 uIU/mL (0.47-4.68)
[2022-01-15 23:30] VITALS: PULSE 80; O2SAT 99
[2022-01-15 23:31] VITALS: BP 124/74; PULSE 70; O2SAT 96
== END 2022-01-15 23:51 | disposition home or self-care (01) ==
PROVIDERS: Emergency Provider Emergency Medicine; PCP Family Medicine
DX: R52 Pain, unspecified (principal); R25.2 Cramp and spasm
CPT/HCPCS: 80053; 84443; 85025; 99281; 99282

== ENCOUNTER → 2022-12-03 16:14 | Outpatient (CLI) | payer OTHER, SELFPAY ==
[2022-12-03 19:58] LABS: Urine N gonorrhoeae NOT DETECTED
[2022-12-03 20:06] LABS: Urine Chlamydia NOT DETECTED
== END ==
PROVIDERS: PCP Family Medicine; Visit Provider Registered Nurse
DX: R30.0 Dysuria (principal)
CPT/HCPCS: 87491; 87591

== ENCOUNTER → 2022-12-03 16:25 | Outpatient (CLI) | payer OTHER, SELFPAY ==
[2022-12-03 18:55] LABS: HIV 1 & 2 Ab/Ag 4th Gen Combo NEGATIVE (NEGATIVE); Hep C Virus Ab w/Reflex Quant NEGATIVE s/c (NEGATIVE)
[2022-12-05 11:40] LABS: HSV 2 IGG AB < 0.91 index (0.00-0.90)
[2022-12-06 01:15] LABS: Hepatitis B Core AB w/Reflex Negative (Negative)
[2022-12-06 09:42] LABS: RPR Screen Non Reactive (Non Reactive)
== END ==
PROVIDERS: PCP Family Medicine; Referring Provider Registered Nurse; Visit Provider Registered Nurse
DX: Z20.2 Contact with and (suspected) exposure to infections with a predominantly sexual mode of transmission (principal); R30.0 Dysuria
CPT/HCPCS: 36415; 86592; 86695; 86696; 86704; 86803; 87389; 87491; 87591

== ENCOUNTER 2023-01-23 13:16 | Emergency (ER) | payer OTHER, SELFPAY ==
[2023-01-23 13:41] VITALS: BP 127/75; PULSE 69; RESP 20; TEMP 36.6; O2SAT 95; BMI 35.2
--- NOTE | 2023-01-23 14:07 | DI.RAD.S_ITS ---
PROCEDURE: XR CHEST 2V INDICATIONS: cough TECHNIQUE: 2 views of the chest were acquired. COMPARISON: [facility], CR, XR CHEST 1V, 01/07/2022, 8:04. FINDINGS: Surgical changes and devices: None. Lungs and pleura: Lungs are clear. No pleural effusions or pneumothorax. Mediastinum: Mediastinal contours are normal. Heart size is normal. Bones and chest wall: No suspicious bony abnormalities. Soft tissues appear unremarkable. IMPRESSION: No acute cardiopulmonary abnormality. Dictated by: Jose Angel Winter M.D. on 01/23/2023 at 13:59 Approved by: Jose Angel Winter M.D. on 01/23/2023 at 14:00
--- NOTE | 2023-01-23 14:10 | ED_ITS ---
HPI - URI/Sore Throat <LLUVIA Berger - Last Filed: 01/23/23 15:51> General Chief Complaint: Upper Respiratory Symptoms Stated Complaint: sick for 1 month//fevers,muscleaches Time Seen by Provider: 01/23/23 13:40 Source: patient Mode of arrival: Ambulatory History of Present Illness HPI Narrative: 37-year-old male, never smoker, presents to the emergency department with a one- month history intermittent headache, body aches, leg pain, chest pressure, cough and congestion. Patient was seen in the walk-in clinic 4 days ago and recommended that he follow up with his family doctor. Patient had COVID-19 luis roximately 1 year ago and has had intermittent issues ever since. Patient had received a GI consult last year but had never received a phone call back from the GI doctor. Patient endorses many of those symptoms are intermittent. Related Data Home Medications Medication Instructions Recorded Confirmed Ibuprofen See Rx Instructions .Route .COMPLEX 08/08/18 01/19/23 Previous Rx's Medication Instructions Recorded clonazepam 1 mg tablet See Rx Instructions PO BEDTIME PRN 01/08/22 insomnia or anxiety #30 tabs omeprazole 40 mg capsule,delayed 40 mg PO DAILY #90 caps 01/08/22 release hydroxyzine HCl 10 mg tablet See Rx Instructions .Route 02/16/22 .COMPLEX #90 tabs Allergies Allergy/AdvReac Type Severity Reaction Status Date / Time doxycycline Allergy Intermediate HIVES Verified 01/23/23 13:46 alprazolam [ALPRAZOLAM] AdvReac Severe ADDICTION Verified 01/23/23 13:46 escitalopram AdvReac Severe panic Verified 01/23/23 13:46 attack, lock jaw, tremors buspirone AdvReac Mild DIZZINESS Verified 01/23/23 13:46 Review of Systems <LLUVIA Berger - Last Filed: 01/23/23 15:51> Review of Systems Narrative: Narrative: See HPI. GENERAL: Denies chills, sweats. Endorses body aches, intermittent fatigue and fever. HEENT: Denies sore throat, difficulty swallowing, dizziness. Endorses ear fullness and sinus pressure. RESPIRATORY: Denies dyspnea, wheezing, sputum. Endorses cough and congestion. CARDIOVASCULAR: Denies palpitations, edema. Endorses chest pressure. GASTROINTESTINAL: Denies nausea, vomiting, abdominal pain, diarrhea, constipation. : Denies dysuria, frequency, incontinence, hematuria, urinary retention, flank pain. MSK: Denies weakness, joint pain, or bony pain. Endorses leg pains. SKIN: Denies rash, skin lesions, or pruritis. NEUROLOGIC: Denies weakness, dizziness, numbness, confusion. Endorses headache. PSYCHIATRIC: No concerning psychosocial issues. 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 HEAD: Atraumatic. Normocephalic. EYES: Pupils equal round and reactive. Extraocular motions intact. No scleral icterus, injection or drainage. ENT: Nose without bleeding, purulent drainage. Throat without erythema, tonsillar hypertrophy, positive postnasal exudate. Uvula midline. Airway patent . TMs and canals clear, with effusion bilaterally. No sinus tenderness. NECK: Trachea midline. No JVD or lymphadenopathy. Nontender. CARDIOVASCULAR: Regular rate and rhythm without murmurs, peripheral pulses intact, cap refill <2 sec. RESPIRATORY: Breath sounds equal and clear bilaterally. No wheezes, rales, or rhonchi. Positive wet cough. No increased respiratory effort. No accessory muscle use. GASTROINTESTINAL: Abdomen soft, non-tender, nondistended without guarding or rebound. No suprapubic pain. MSK: Moves all extremities. Normal range of motion, no clubbing or edema. Neurovascularly intact. NEURO: A&O x 3. SKIN: Warm, dry, no rashes or lesions noted. Initial Vital Signs Initial Vital Signs: Vital Signs Temperature 98 F 01/23/23 13:41 Pulse Rate 69 01/23/23 13:41 Respiratory Rate 20 01/23/23 13:41 Blood Pressure 127/75 01/23/23 13:41 Pulse Oximetry 95 01/23/23 13:41 Oxygen Delivery Method Room Air 01/23/23 13:41 Reviewed <Jaimie Wyman DO - Last Filed: 01/28/23 07:50> Initial Vital Signs Initial Vital Signs: Vital Signs Temperature 98 F 01/23/23 13:41 Pulse Rate 69 01/23/23 13:41 Respiratory Rate 20 01/23/23 13:41 Blood Pressure 127/75 01/23/23 13:41 Pulse Oximetry 95 01/23/23 13:41 Oxygen Delivery Method Room Air 01/23/23 13:41 Course <LLUVIA Berger - Last Filed: 01/23/23 15:51> Orders Ordered: ED Orders 01/23/23 13:49 Covid-19 + FLU A/B + RSV - PCR Stat 01/23/23 14:07 XR chest 2V Stat 01/23/23 14:19 B12 [Vitamin B12] Stat CBC Auto Diff [Complete Blood Count AUTO DIFF] Stat CMP [Comprehensive Metabolic Panel] Stat Iron Stat MG [Magnesium] Stat TSH [Thyroid Stimulating Hormone] Stat Vital Signs Vital signs: Vital Signs - 8 hr 01/23/23 13:41 Temperature 98 F Pulse Rate 69 Respiratory Rate 20 Blood Pressure 127/75 Pulse Oximetry 95 Oxygen Delivery Method Room Air <Jaimie Wyman DO - Last Filed: 01/28/23 07:50> Orders Ordered: ED Orders 01/23/23 13:49 Covid-19 + FLU A/B + RSV - PCR Stat 01/23/23 14:07 XR chest 2V Stat 01/23/23 14:19 B12 [Vitamin B12] Stat CBC Auto Diff [Complete Blood Count AUTO DIFF] Stat CMP [Comprehensive Metabolic Panel] Stat Iron Stat MG [Magnesium] Stat TSH [Thyroid Stimulating Hormone] Stat Vital Signs Vital signs: Vital Signs - 8 hr 01/23/23 13:41 Temperature 98 F Pulse Rate 69 Respiratory Rate 20 Blood Pressure 127/75 Pulse Oximetry 95 Oxygen Delivery Method Room Air MDM - URI/Sore Throat <LLUVIA Berger - Last Filed: 01/23/23 15:51> Differential Diagnosis Differential diagnosis: Likely upper respiratory infection, viral infection and bronchitis Lab Data 01/23/23 14:19 01/23/23 14:19 Labs: Lab Results 01/23/23 01/23/23 01/23/23 Range/Units 13:49 14:19 14:19 WBC 7.6 (4.5-11.0) X10^3/uL RBC 4.75 (4.5-5.9) X10^6/uL Hgb 14.3 (13.5-17.5) g/dL Hct 42.2 (41-53) % MCV 88.9 (80-100) fL MCH 30.2 (26-34) PG MCHC 33.9 (30-36) % RDW 12.8 (11.6-14.8) % Plt Count 219 (150-400) X10^3/uL Neut % (Auto) 50.7 (50-75) % Lymph % (Auto) 30.1 (25-40) % Gates % (Auto) 9.5 (3-14) % Eos % (Auto) 9.0 H (2-4) % Baso % (Auto) 0.7 (0-2) % Neut # (Auto) 3800 (3510-1514) /uL Lymph # (Auto) 2300 (1406-0665) /uL Gates # (Auto) 700 (0-900) /uL Eos # (Auto) 700 H (0-450) /uL Baso # (Auto) 100 (0-100) /uL Sodium 138 (137-145) mmol/L Potassium 4.0 (3.4-5.1) mmol/L Chloride 101 (98-107) mmol/L Carbon Dioxide 30 (22-32) mmol/L BUN 12 (9-20) mg/dL Creatinine 0.82 (0.66-1.25) mg/dL Estimated GFR > 60 (>60) mL/min BUN/Creatinine Ratio 14.6 (6-22) Glucose 85 (70-100) mg/dL Calcium 9.0 (8.4-10.2) mg/dL Magnesium (1.6-2.3) mg/dL Iron (49-181) ug/dL Total Bilirubin 0.4 (0.2-1.3) mg/dL AST 28 (17-59) IU/L ALT 32 (<50) IU/L Alkaline Phosphatase 61 (38-126) U/L Total Protein 7.5 (6.3-8.2) g/dL Albumin 4.4 (3.5-5.0) g/dL Globulin 3.1 (1.7-4.1) g/dL Albumin/Globulin Ratio 1.4 (1.0-2.8) Vitamin B12 430 (239-931) pg/mL TSH (0.47-4.68) uIU/mL SARS-CoV-2 (PCR) Negative (Negative) Influenza A (RT-PCR) Flu a negative (NEGATIVE) Influenza B (RT-PCR) Flu b negative (NEGATIVE) RSV (PCR) Negative (Negative) 01/23/23 01/23/23 Range/Units 14:19 14:19 WBC (4.5-11.0) X10^3/uL RBC (4.5-5.9) X10^6/uL Hgb (13.5-17.5) g/dL Hct (41-53) % MCV (80-100) fL MCH (26-34) PG MCHC (30-36) % RDW (11.6-14.8) % Plt Count (150-400) X10^3/uL Neut % (Auto) (50-75) % Lymph % (Auto) (25-40) % Gates % (Auto) (3-14) % Eos % (Auto) (2-4) % Baso % (Auto) (0-2) % Neut # (Auto) (8277-1916) /uL Lymph # (Auto) (6620-3973) /uL Gates # (Auto) (0-900) /uL Eos # (Auto) (0-450) /uL Baso # (Auto) (0-100) /uL Sodium (137-145) mmol/L Potassium (3.4-5.1) mmol/L Chloride (98-107) mmol/L Carbon Dioxide (22-32) mmol/L BUN (9-20) mg/dL Creatinine (0.66-1.25) mg/dL Estimated GFR (>60) mL/min BUN/Creatinine Ratio (6-22) Glucose (70-100) mg/dL Calcium (8.4-10.2) mg/dL Magnesium 1.9 (1.6-2.3) mg/dL Iron 91 (49-181) ug/dL Total Bilirubin (0.2-1.3) mg/dL AST (17-59) IU/L ALT (<50) IU/L Alkaline Phosphatase (38-126) U/L Total Protein (6.3-8.2) g/dL Albumin (3.5-5.0) g/dL Globulin (1.7-4.1) g/dL Albumin/Globulin Ratio (1.0-2.8) Vitamin B12 (239-931) pg/mL TSH 1.85 (0.47-4.68) uIU/mL SARS-CoV-2 (PCR) (Negative) Influenza A (RT-PCR) (NEGATIVE) Influenza B (RT-PCR) (NEGATIVE) RSV (PCR) (Negative) Imaging Data Chest x-ray: Radiologist's Impression: [address] [address] XRay Report Signed Patient: Roberto Chi MR#: [id number] : 1985 Acct:[id number] Age/Sex: 37 / M Date of Service: 01/23/23 Loc: ED Accession Number: [id number] ?? Procedure: XR chest 2V Ordering Provider: Willam Camacho PROCEDURE:? XR CHEST 2V ? INDICATIONS:? cough ? TECHNIQUE:? 2 views of the chest were acquired.? ? COMPARISON:? [facility], , XR CHEST 1V, 01/07/2022, 8:04. ? FINDINGS:? ? Surgical changes and devices:? None.? ? Lungs and pleura:? Lungs are clear.? No pleural effusions or pneumothorax.? ? Mediastinum:? Mediastinal contours are normal.? Heart size is normal.? ? Bones and chest wall:? No suspicious bony abnormalities.? Soft tissues appear unremarkable.? ? IMPRESSION:? No acute cardiopulmonary abnormality. ? ? ? Dictated by: Jose Angel Winter M.D. on 01/23/2023 at 13:59 ? ? Approved by: Jose Angel Winter M.D. on 01/23/2023 at 14:00 ? MDM Narrative Medical decision making narrative: 37-year-old male presents to the emergency department with a one-month history fever, fatigue, cough and body aches. Chest x-ray was normal. Labs were non concerning. Assessment was encouraging and I suspect much of patient's symptoms may be related to sinus drainage and viral illnesses. Recommended supportive care that included rest, increased oral hydration, gargling with warm salt water in the morning, daily Claritin or Zyrtec and Flonase nasal spray. Discussed plan of care and worsening symptoms that would necessitate a return visit to the emergency department. Otherwise, patient will follow up with his family doctor as needed. <Jaimie Wyman, DO - Last Filed: 01/28/23 07:50> Lab Data Labs: Lab Results 01/23/23 01/23/23 01/23/23 Range/Units 13:49 14:19 14:19 WBC 7.6 (4.5-11.0) X10^3/uL RBC 4.75 (4.5-5.9) X10^6/uL Hgb 14.3 (13.5-17.5) g/dL Hct 42.2 (41-53) % MCV 88.9 (80-100) fL MCH 30.2 (26-34) PG MCHC 33.9 (30-36) % RDW 12.8 (11.6-14.8) % Plt Count 219 (150-400) X10^3/uL Neut % (Auto) 50.7 (50-75) % Lymph % (Auto) 30.1 (25-40) % Gates % (Auto) 9.5 (3-14) % Eos % (Auto) 9.0 H (2-4) % Baso % (Auto) 0.7 (0-2) % Neut # (Auto) 3800 (3321-3737) /uL Lymph # (Auto) 2300 (4243-1711) /uL Gates # (Auto) 700 (0-900) /uL Eos # (Auto) 700 H (0-450) /uL Baso # (Auto) 100 (0-100) /uL Sodium 138 (137-145) mmol/L Potassium 4.0 (3.4-5.1) mmol/L Chloride 101 (98-107) mmol/L Carbon Dioxide 30 (22-32) mmol/L BUN 12 (9-20) mg/dL Creatinine 0.82 (0.66-1.25) mg/dL Estimated GFR > 60 (>60) mL/min BUN/Creatinine Ratio 14.6 (6-22) Glucose 85 (70-100) mg/dL Calcium 9.0 (8.4-10.2) mg/dL Magnesium (1.6-2.3) mg/dL Iron (49-181) ug/dL Total Bilirubin 0.4 (0.2-1.3) mg/dL AST 28 (17-59) IU/L ALT 32 (<50) IU/L Alkaline Phosphatase 61 (38-126) U/L Total Protein 7.5 (6.3-8.2) g/dL Albumin 4.4 (3.5-5.0) g/dL Globulin 3.1 (1.7-4.1) g/dL Albumin/Globulin Ratio 1.4 (1.0-2.8) Vitamin B12 430 (239-931) pg/mL TSH (0.47-4.68) uIU/mL SARS-CoV-2 (PCR) Negative (Negative) Influenza A (RT-PCR) Flu a negative (NEGATIVE) Influenza B (RT-PCR) Flu b negative (NEGATIVE) RSV (PCR) Negative (Negative) 01/23/23 01/23/23 Range/Units 14:19 14:19 WBC (4.5-11.0) X10^3/uL RBC (4.5-5.9) X10^6/uL Hgb (13.5-17.5) g/dL Hct (41-53) % MCV (80-100) fL MCH (26-34) PG MCHC (30-36) % RDW (11.6-14.8) % Plt Count (150-400) X10^3/uL Neut % (Auto) (50-75) % Lymph % (Auto) (25-40) % Gates % (Auto) (3-14) % Eos % (Auto) (2-4) % Baso % (Auto) (0-2) % Neut # (Auto) (3460-7163) /uL Lymph # (Auto) (3527-2581) /uL Gates # (Auto) (0-900) /uL Eos # (Auto) (0-450) /uL Baso # (Auto) (0-100) /uL Sodium (137-145) mmol/L Potassium (3.4-5.1) mmol/L Chloride (98-107) mmol/L Carbon Dioxide (22-32) mmol/L BUN (9-20) mg/dL Creatinine (0.66-1.25) mg/dL Estimated GFR (>60) mL/min BUN/Creatinine Ratio (6-22) Glucose (70-100) mg/dL Calcium (8.4-10.2) mg/dL Magnesium 1.9 (1.6-2.3) mg/dL Iron 91 (49-181) ug/dL Total Bilirubin (0.2-1.3) mg/dL AST (17-59) IU/L ALT (<50) IU/L Alkaline Phosphatase (38-126) U/L Total Protein (6.3-8.2) g/dL Albumin (3.5-5.0) g/dL Globulin (1.7-4.1) g/dL Albumin/Globulin Ratio (1.0-2.8) Vitamin B12 (239-931) pg/mL TSH 1.85 (0.47-4.68) uIU/mL SARS-CoV-2 (PCR) (Negative) Influenza A (RT-PCR) (NEGATIVE) Influenza B (RT-PCR) (NEGATIVE) RSV (PCR) (Negative) Discharge Plan Departure Patient Disposition: Home Clinical Impression: Viral infection Instructions: DI for Viral Upper Respiratory Infection -- Adult Activity Restrictions/Additional Instructions: *You have been diagnosed with a viral illness. Your chest x-ray was normal in your labs are all within normal limits. My assessment was encouraging and I suspect much of your symptoms are related to sinus drainage and/or a viral illness. Antibiotics are not indicated for this type of illness. Recommend supportive care that included rest, increased oral hydration, gargling with warm salt water in the morning, daily Claritin or Zyrtec and Flonase nasal spray. For any worsening symptoms that include chest pain, shortness of breath or intolerable pain, please return to the emergency department. Otherwise, Please follow-up with your family doctor as needed. *What to do: *Please continue to take your regular medications as directed. [ ] New medication prescriptions sent to your pharmacy: [ ] [ ] New medication written as a paper prescription [ x] No new medications given *Please follow up with your primary care provider in 2-3 days, call for an appointment. Let them know you were seen in the Emergency Department and that we ask that you be seen in follow up. We will electronically transmit a record of today's note if your PCP is in our system *If you do not have a primary care provider please contact the [facility] Resource line at [phone]. They will ask some questions about your medical history and help get you set up with a doctor in the community. ? Return to ER if you should have any new, worsening or concerning symptoms, such as worsening pain, severe headache, confusion, chest pain, difficulty breathing, fever greater than 101 F, shaking chills, persistent vomiting to the point that you cannot drink fluids, or other new or worsening symptoms. Prescriptions: No Action Ibuprofen See Rx Instructions .ROUTE .COMPLEX Patient Comments: 800 mg PO PRN Rx Instructions: 800 mg PO PRN hydroxyzine HCl 10 mg tablet See Rx Instructions .ROUTE .COMPLEX Qty: 90 3RF Dose Instruction: TAKE 1/2 TO 2 TABLETS BY MOUTH NEEDED FOR ANXIETY/ PANIC ATTACK. MAY USE UP TO 25MG NEEDED. MAY MAKE YOU SLEEPY. DO NOT DRIVE AFTER TAKING. Rx Instructions: TAKE 1/2 TO 2 TABLETS BY MOUTH NEEDED FOR ANXIETY/ PANIC ATTACK. MAY USE UP TO 25MG NEEDED. MAY MAKE YOU SLEEPY. DO NOT DRIVE AFTER TAKING. clonazepam 1 mg tablet See Rx Instructions PO BEDTIME PRN (Reason: insomnia or anxiety) Qty: 30 0RF Rx Instructions: t 1/2 tab to 1 tab 30 minutes before bedtime as needed PO bedtime PRN for panic or insomnia omeprazole 40 mg capsule,delayed release(DR/EC) 40 mg PO DAILY Qty: 90 3RF Referrals: Amilcar Timmons MD [Primary Care Provider] - Stand Alone Forms: Patient Portal/API <Jaimie Wyman DO - Last Filed: 01/28/23 07:50> [facility] ED Attending Nikosature Attestation: I was immediately available in the department for consultation. Documentation has been reviewed.
[2023-01-23 14:26] LABS: Add Manual Diff / Slide Review NO; Basophils Absolute Auto 100 /uL (0-100); Basophils Percent Auto 0.7 % (0-2); Eosinophils Absolute Auto 700 /uL (0-450); Hematocrit 42.2 % (41-53); Hemoglobin 14.3 g/dL (13.5-17.5); Lymphocytes Absolute Auto 2300 /uL (1100-4500); Lymphocytes Percent Auto 30.1 % (25-40); Mean Corpuscular HGB Conc 33.9 % (30-36); Mean Corpuscular Hemoglobin 30.2 PG (26-34); Mean Corpuscular Volume 88.9 fL (80-100); Monocytes Absolute Auto 700 /uL (0-900); Monocytes Percent Auto 9.5 % (3-14); Neutrophils Absolute Auto 3800 /uL (1500-7000); Neutrophils Percent Auto 50.7 % (50-75); Platelet Count 219 X10^3/uL (150-400); Red Blood Cell Count 4.75 X10^6/uL (4.5-5.9); Red Cell Distribution Width 12.8 % (11.6-14.8); White Blood Cell Count 7.6 X10^3/uL (4.5-11.0)
[2023-01-23 14:32] LABS: COVID-19 CEPHEID 4-PLEX PCR Negative (Negative); Influenza A - CEPHEID Flu A NEGATIVE (NEGATIVE); Influenza B - CEPHEID Flu B NEGATIVE (NEGATIVE); Respiratory Syncytial Virus Negative (Negative)
[2023-01-23 14:38] LABS: Alanine Aminotransferase 32 IU/L (<50); Albumin 4.4 g/dL (3.5-5.0); Albumin Globulin Ratio 1.4 (1.0-2.8); Alkaline Phosphatase 61 U/L (38-126); Aspartate Aminotransferase 28 IU/L (17-59); BUN Creatinine Ratio 14.6 (6-22); Bilirubin Total 0.4 mg/dL (0.2-1.3); Blood Urea Nitrogen 12 mg/dL (9-20); Carbon Dioxide 30 mmol/L (22-32); Chloride 101 mmol/L (98-107); Estimated Glomerular Filt Rate > 60 mL/min (>60); Globulin 3.1 g/dL (1.7-4.1); Glucose 85 mg/dL (70-100); HEMOLYSIS < 15 (0-50); Sodium 138 mmol/L (137-145); Total Protein 7.5 g/dL (6.3-8.2)
[2023-01-23 14:39] LABS: Magnesium 1.9 mg/dL (1.6-2.3)
[2023-01-23 14:43] LABS: Iron 91 ug/dL (49-181)
[2023-01-23 15:15] LABS: Thyroid Stimulating Hormone 1.85 uIU/mL (0.47-4.68)
[2023-01-23 15:27] LABS: Vitamin B12 430 pg/mL (239-931)
[2023-01-23 15:55] VITALS: BP 109/75; PULSE 67; RESP 18; O2SAT 98
== END 2023-01-23 15:55 | disposition home or self-care (01) ==
PROVIDERS: Emergency Medicine; Emergency Provider Registered Nurse; PCP Family Medicine
DX: J06.9 Acute upper respiratory infection, unspecified (principal); R07.9 Chest pain, unspecified; Z20.822 Contact with and (suspected) exposure to COVID-19; Z86.16 Personal history of COVID-19
CPT/HCPCS: 0241U; 36415; 71046; 80053; 82607; 83540; 83735; 84443; 85025; 99284

== ENCOUNTER 2023-02-28 09:59 | Emergency (ER) | payer OTHER, SELFPAY ==
[2023-02-28] VITALS (8 sets, daily range): BP systolic 110–166; BP diastolic 56–95; PULSE 55–83; RESP 16–18; TEMP 36.1; O2SAT 93–100; BMI 34.4
--- NOTE | 2023-02-28 10:02 | ED_ITS ---
HPI - Back Pain/Injury General Chief Complaint: Back Pain/Injury Stated Complaint: Lower Back Pain Time Seen by Provider: 02/28/23 10:00 History of Present Illness HPI Narrative: 37-year-old male nonsmoker without chronic medical problems presents with a chief complaint of severe midline lower back pain this morning upon waking. He denies any trauma or injury. He denies fever or chills. He does not take blood thinners. He denies any radiation of the pain nor any numbness, tingling or weakness of his lower extremities. He denies loss of control of bowel or bladder. He states he is had back pain in the past and this feels similar but more severe. He took a few Naprosyn prior to his arrival Related Data Home Medications Medication Instructions Recorded Confirmed Ibuprofen See Rx Instructions .Route .COMPLEX 08/08/18 01/19/23 Previous Rx's Medication Instructions Recorded clonazepam 1 mg tablet See Rx Instructions PO BEDTIME PRN 01/08/22 insomnia or anxiety #30 tabs omeprazole 40 mg capsule,delayed 40 mg PO DAILY #90 caps 01/08/22 release hydroxyzine HCl 10 mg tablet See Rx Instructions .Route 02/16/22 .COMPLEX #90 tabs cyclobenzaprine 10 mg tablet 10 mg PO TID PRN muscle spasm #14 02/28/23 tabs gabapentin 300 mg capsule 300 mg PO BEDTIME #14 caps 02/28/23 hydrocodone 5 mg-acetaminophen 325 1 tab PO Q4-6H PRN pain #10 tabs 02/28/23 mg tablet ketorolac 10 mg tablet 10 mg PO Q6H PRN pain #14 tabs 02/28/23 methylprednisolone 4 mg tablets in See Rx Instructions PO .COMPLEX 02/28/23 a dose pack (Medrol (David)) #21 ea Allergies Allergy/AdvReac Type Severity Reaction Status Date / Time doxycycline Allergy Intermediate HIVES Verified 01/23/23 13:46 alprazolam [ALPRAZOLAM] AdvReac Severe ADDICTION Verified 01/23/23 13:46 escitalopram AdvReac Severe panic Verified 01/23/23 13:46 attack, lock jaw, tremors buspirone AdvReac Mild DIZZINESS Verified 01/23/23 13:46 Review of Systems Review of Systems Narrative: GENERAL: Denies chills, fatigue, malaise, fever, sweats. HEENT: Denies sinus pain, ear pain, sore throat, difficulty swallowing, dizziness. RESPIRATORY: Denies dyspnea, cough, wheezing, hemoptysis, sputum. CARDIOVASCULAR: Denies chest pain, palpitations, orthopnea, edema, GASTROINTESTINAL: Denies nausea, vomiting, abdominal pain, diarrhea, constipation, melena. : Denies dysuria, frequency, incontinence, hematuria, urinary retention. MUSCULOSKELETAL: See HPI SKIN: Denies rash, skin lesions, or other NEUROLOGIC: See HPI PSYCHIATRIC: No concerning psychosocial issues. 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 Well-developed patient, in obvious discomfort, tearful, admittedly anxious HEAD: Atraumatic. Normocephalic. EYES: Pupils equal round and reactive. Extraocular motions intact. No scleral icterus. No injection or drainage. ENT: Nose without bleeding, purulent drainage. Throat without erythema, tonsillar hypertrophy or exudate. Airway patent. NECK: Trachea midline. Non tender CARDIOVASCULAR: Regular rate and rhythm without murmurs, gallops, or rubs. RESPIRATORY: Clear to auscultation. Breath sounds equal bilaterally. No wheezes, rales, or rhonchi. GASTROINTESTINAL: Abdomen soft, non-tender, nondistended. EXTREMITIES: No edema or joint tenderness. BACK: baller tender but free of any obvious external abnormalities. Patient exam notes decreased range of motion and muscle spasm, but no CVA tenderness, or vertebral point tenderness. There are no symptoms of cauda equina such as saddle anesthesia, and decreased reflexes, decreased sensation or strength. NEURO: AOx3. SKIN: No rash or erythema of visible areas Initial Vital Signs Initial Vital Signs: Vital Signs Pulse Rate 81 02/28/23 10:04 Blood Pressure 166/95 H 02/28/23 10:04 Pulse Oximetry 100 02/28/23 10:04 Course Orders Ordered: ED Orders 02/28/23 10:08 XR lumbar spine 2-3V Stat Discontinued Medications Cyclobenzaprine HCl (Cyclobenzaprine 10 Mg Tablet) 10 mg PO NOW ONE Stop: 02/28/23 10:09 Last Admin: 02/28/23 10:16 Dose: 10 mg Documented By: RLS Gabapentin (Gabapentin 300 Mg Capsule) 300 mg PO NOW ONE Stop: 02/28/23 12:13 Last Admin: 02/28/23 12:32 Dose: 300 mg Documented By: CTS Lidocaine (Lidocaine Patch 1 Each Adh..Patch) 1 each TOP NOW ONE Stop: 02/28/23 10:09 Last Admin: 02/28/23 10:15 Dose: 1 each Documented By: JOYCE Prednisone (Prednisone 20 Mg Tablet) 60 mg PO NOW ONE Stop: 02/28/23 12:13 Last Admin: 02/28/23 12:32 Dose: 60 mg Documented By: CTS Vital Signs Vital signs: Vital Signs - 8 hr 02/28/23 10:05 02/28/23 10:04 02/28/23 10:04 Temperature 97.0 F L Pulse Rate 83 81 Respiratory Rate 16 Blood Pressure 166/95 H 166/95 H Pulse Oximetry 99 100 Oxygen Delivery Method Room Air 02/28/23 10:36 02/28/23 11:00 02/28/23 11:30 Temperature Pulse Rate 66 57 L 61 Respiratory Rate Blood Pressure Pulse Oximetry 98 98 97 Oxygen Delivery Method 02/28/23 11:35 02/28/23 11:35 02/28/23 12:00 Temperature Pulse Rate 62 Respiratory Rate Blood Pressure 110/56 L 121/77 Pulse Oximetry 93 Oxygen Delivery Method 02/28/23 12:00 02/28/23 13:30 Temperature Pulse Rate 55 L 57 L Respiratory Rate 18 Blood Pressure 118/66 Pulse Oximetry 98 98 Oxygen Delivery Method Room Air MDM - Back Pain/Injury Imaging Data Lumbar Xray: Radiologist's Impression: Close Lumbar Spine X-Ray (Signed) Abel Multani - 02/28/23 Launch?[address] [address] XRay Report Signed Patient: Roberto Chi MR#: [id number] : 1985 Acct:[id number] Age/Sex: 37 / M Date of Service: 02/28/23 PROCEDURE:? XR LUMBAR SPINE 2-3V ? INDICATIONS:? severe pain ? TECHNIQUE:? 3 views of the lumbar spine were acquired.? ? COMPARISON:? None. ? FINDINGS:? ? Bones:? 5 [id number] vertebrae are present.? There is normal bony alignment.? No vertebral body compression fractures.? No suspicious bony lesions.? ? Soft tissues:? Overlying bowel gas pattern is normal.? No suspicious soft tissue calcifications.? ? ? IMPRESSION:? Normal lumbar spine radiographs ? ? ? Approved by: Abel Multani M.D. on 02/28/2023 at 10:08? [facility] Narrative Medical decision making narrative: [37] year old patient presents with low back pain with some radiation to his posterior right hip in the absence of trauma or injury. Does not take blood thinners and has no fever Multiple etiologies for patient's symptoms considered including, but not limited to: [Muscle spasm, cauda equina versus other] Prior Charts reviewed in our EMR Primary Historian: patient Imaging reviewed: Normal L-spine radiographs Patient given anti-inflammatories, gabapentin, steroid and Flexeril. He repeatedly refused opioids Multiple etiologies of back pain considered including; Epidural abscess, cauda equina, mass occupying lesion, and other considered however no evidence of neurosurgical emergency is present. Patient has no lower extremity weakness, depressed reflexes, trouble controlling bowel or bladder, footdrop. He has no fever and does not use blood thinners. He does have some improvement in sy mptoms with above-stated therapies but is still having some pain. At this time there is no indication for MRI. Patient given return precautions and questions answered to his apparent satisfaction. Findings and discharge diagnosis discussed with patient/family followed by verbalization of understanding Return precautions discussed with patient/family whom verbalize understanding of diagnosis and plan Discharge Plan Departure Patient Disposition: Home Clinical Impression: Acute lumbar radiculopathy Instructions: DI for Lumbar Radiculopathy Activity Restrictions/Additional Instructions: *You have been diagnosed with [lumbar pain with radiculopathy] *What to do: *Please continue to take your regular medications as directed. [x ] New medication prescriptions sent to your pharmacy: [[facility]] [ ] New medication written as a paper prescription [ ] No new medications given *Please follow up with your primary care provider in 2-3 days, call for an appointment. Let them know you were seen in the Emergency Department and that we ask that you be seen in follow up. We will electronically transmit a record of today's note if your PCP is in our system * as mentioned I have included contact information for both Dr. Villar and Dr. Fontaine who specialize in back pain and have electronically transmitted copies of today's note to their office. Please call the numbers listed below, let them know you were seen in the emergency department and we would like you seen in follow-up *Return to Emergency Department if you should have any new, worsening or concerning symptoms, such as [fever greater than 101 F, shaking chills, worsening pain, persistent vomiting or other bothersome symptoms] You have been prescribed a short course of narcotic medications. These are potentially dangerous and addictive medications that should be used carefully. While on these medications you cannot drive or operate heavy machinery. Additionally, you cannot sign legal documents or perform any duties such as this. 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 Please understand that we cannot provide further refills of narcotics or controlled substances through the ED and your pain management will need to be through your Primary Care Provider Prescriptions: New cyclobenzaprine 10 mg tablet 10 mg PO TID PRN (Reason: muscle spasm) Qty: 14 0RF hydrocodone-acetaminophen 5-325 mg tablet 1 tab PO Q4-6H PRN (Reason: pain) Qty: 10 0RF ketorolac 10 mg tablet 10 mg PO Q6H PRN (Reason: pain) Qty: 14 0RF gabapentin 300 mg capsule 300 mg PO BEDTIME Qty: 14 0RF methylprednisolone [Medrol (David)] 4 mg tablets,dose pack See Rx Instructions .ROUTE .COMPLEX Qty: 21 0RF Rx Instructions: orally per package directions No Action Ibuprofen See Rx Instructions .ROUTE .COMPLEX Patient Comments: 800 mg PO PRN Rx Instructions: 800 mg PO PRN hydroxyzine HCl 10 mg tablet See Rx Instructions .ROUTE .COMPLEX Qty: 90 3RF Dose Instruction: TAKE 1/2 TO 2 TABLETS BY MOUTH NEEDED FOR ANXIETY/ PANIC ATTACK. MAY USE UP TO 25MG NEEDED. MAY MAKE YOU SLEEPY. DO NOT DRIVE AFTER TAKING. Rx Instructions: TAKE 1/2 TO 2 TABLETS BY MOUTH NEEDED FOR ANXIETY/ PANIC ATTACK. MAY USE UP TO 25MG NEEDED. MAY MAKE YOU SLEEPY. DO NOT DRIVE AFTER TAKING. clonazepam 1 mg tablet See Rx Instructions PO BEDTIME PRN (Reason: insomnia or anxiety) Qty: 30 0RF Rx Instructions: t 1/2 tab to 1 tab 30 minutes before bedtime as needed PO bedtime PRN for panic or insomnia omeprazole 40 mg capsule,delayed release(DR/EC) 40 mg PO DAILY Qty: 90 3RF Referrals: Satish Fontaine DO [Physician] - Amilcar Timmons MD [Primary Care Provider] - Moises Thomas MD [Physician] - Stand Alone Forms: Patient Portal/API
--- NOTE | 2023-02-28 10:08 | DI.RAD.S_ITS ---
PROCEDURE: XR LUMBAR SPINE 2-3V INDICATIONS: severe pain TECHNIQUE: 3 views of the lumbar spine were acquired. COMPARISON: None. FINDINGS: Bones: 5 [id number] vertebrae are present. There is normal bony alignment. No vertebral body compression fractures. No suspicious bony lesions. Soft tissues: Overlying bowel gas pattern is normal. No suspicious soft tissue calcifications. IMPRESSION: Normal lumbar spine radiographs Approved by: Abel Multani M.D. on 02/28/2023 at 10:08
[2023-02-28] MEDS: LIDOCAINE PATCH 1 EACH ADH..PATCH TOP (10:15)
[2023-02-28] MEDS: CYCLOBENZAPRINE 10 MG TABLET PO (10:16)
[2023-02-28] MEDS: predniSONE 20 MG TABLET 60 MG PO (12:32)
[2023-02-28] MEDS: GABAPENTIN 300 MG CAPSULE PO (12:32)
== END 2023-02-28 13:38 | disposition home or self-care (01) ==
PROVIDERS: Emergency Provider Emergency Medicine; PCP Family Medicine
DX: M54.16 Radiculopathy, lumbar region (principal)
CPT/HCPCS: 72100; 99283

== ENCOUNTER → 2024-09-21 08:22 | Outpatient (CLI) | payer OTHER, SELFPAY ==
[2024-09-21 09:08] LABS: Influenza A - CEPHEID Flu A NEGATIVE (NEGATIVE); Influenza B - CEPHEID Flu B NEGATIVE (NEGATIVE); Respiratory Syncytial Virus Negative (Negative)
[2024-09-21 09:18] LABS: COVID-19 CEPHEID 4-PLEX PCR Negative (Negative)
== END ==
PROVIDERS: PCP Family Medicine; Referring Provider Physician Assistant Medical; Visit Provider Physician Assistant Medical
DX: J02.9 Acute pharyngitis, unspecified (principal); R52 Pain, unspecified; J02.0 Streptococcal pharyngitis
CPT/HCPCS: 0241U

== ENCOUNTER → 2025-02-06 14:17 | Outpatient (CLI) | payer OTHER, SELFPAY | PROVIDERS: PCP Family Medicine; Visit Provider Nurse Practitioner Family | DX: J02.9 Acute pharyngitis, unspecified (principal) | CPT/HCPCS: 87070 ==

== ENCOUNTER → 2025-03-28 09:11 | Outpatient (CLI) | payer OTHER, SELFPAY ==
[2025-03-28 10:14] LABS: Add Manual Diff / Slide Review NO; Basophils Absolute Auto 0 /uL (0-100); Basophils Percent Auto 0.4 % (0-2); Eosinophils Absolute Auto 200 /uL (0-450); Eosinophils Percent Auto 3.4 % (2-4); Hematocrit 42.2 % (41-53); Hemoglobin 14.6 g/dL (13.5-17.5); Lymphocytes Absolute Auto 1800 /uL (1100-4500); Lymphocytes Percent Auto 29.8 % (25-40); Mean Corpuscular HGB Conc 34.4 % (30-36); Mean Corpuscular Hemoglobin 30.7 PG (26-34); Mean Corpuscular Volume 89.3 fL (80-100); Monocytes Absolute Auto 500 /uL (0-900); Monocytes Percent Auto 8.2 % (3-14); Neutrophils Absolute Auto 3600 /uL (1500-7000); Neutrophils Percent Auto 58.2 % (50-75); Platelet Count 219 X10^3/uL (150-400); Red Blood Cell Count 4.73 X10^6/uL (4.5-5.9); Red Cell Distribution Width 12.8 % (11.6-14.8); White Blood Cell Count 6.2 X10^3/uL (4.5-11.0)
[2025-03-28 10:44] LABS: Alanine Aminotransferase 27 IU/L (<50); Albumin 4.6 g/dL (3.5-5.0); Albumin Globulin Ratio 1.8 (1.0-2.8); Alkaline Phosphatase 66 U/L (38-126); Aspartate Aminotransferase 26 IU/L (17-59); BUN Creatinine Ratio 22.6 (6-22); Bilirubin Total 0.6 mg/dL (0.2-1.3); Blood Urea Nitrogen 19 mg/dL (9-20); Calcium 9.3 mg/dL (8.4-10.2); Carbon Dioxide 27 mmol/L (22-32); Chloride 104 mmol/L (98-107); Cholesterol 186 mg/dL (140-199); Estimated Glomerular Filt Rate > 60 mL/min (>60); Globulin 2.6 g/dL (1.7-4.1); Glucose 101 mg/dL (70-99); HDL Cholesterol 30 mg/dL (40-60); HEMOLYSIS < 15 (0-50); LDL Cholesterol Calculated 136 mg/dL (<100); Potassium 4.4 mmol/L (3.4-5.1); Sodium 138 mmol/L (137-145); Total Protein 7.2 g/dL (6.3-8.2); Triglycerides 102 mg/dL (35-150)
[2025-03-28 11:01] LABS: Vitamin D 25 Hydroxy (D3) 29.5 ng/mL (30.0-100.0)
[2025-03-28 11:15] LABS: TSH w/ Reflex to FT4 1.41 uIU/mL (0.47-4.68)
[2025-03-28 13:46] LABS: Vitamin B12 365 pg/mL (239-931)
== END ==
PROVIDERS: PCP Nurse Practitioner Family; Referring Provider Nurse Practitioner Family; Visit Provider Nurse Practitioner Family
DX: C61 Malignant neoplasm of prostate (principal); R19.5 Other fecal abnormalities; R10.9 Unspecified abdominal pain; F41.9 Anxiety disorder, unspecified; G47.9 Sleep disorder, unspecified; R39.9 Unspecified symptoms and signs involving the genitourinary system
CPT/HCPCS: 36415; 80053; 80061; 82306; 82607; 84153; 84443; 85025